=== PATIENT | male | born 1960 | race Caucasian/White ===

== ENCOUNTER 2020-06-09 12:10 | Outpatient (NON) | payer BC, SELFPAY ==
[2020-06-12 01:47] LABS: SARS-CoV-2 RNA PCR Positive
== END 2020-06-09 12:11 ==
LOC: ANHCOVIDDT 12:13
PROVIDERS: Visit Provider Emergency Medicine
DX: U07.1 COVID-19 (principal); R05 Cough
CPT/HCPCS: 87635; C9803; U0003

== ENCOUNTER 2025-04-16 16:59 | Outpatient (CLI) | payer BC, SELFPAY ==
--- OUTSIDE RECORDS SUMMARY | 2023-06-06 04:15 | XMS_ITS | Continuity of Care Document ---
Author Organization [facility] Address [address] [place] [address] Phone Care Team Providers Care Sample Box Maker Name Role Phone House RING STRIKER Sugey LADD Unavailable Unavail able Allergies, Adverse Reactions, Alerts Substance Reaction Status Criticality No Known Allergies Active No Inform ation Medications Medication Instructions Dosage Effective Dates (start - stop) Status Comments amoxicillin 500 mg capsule take 4 capsule by oral route 30 MINS PRIOR TO DENTAL PROCEDURE - Active METFORMIN HCL (unknown strength) Not Available - Active lorazepam 1 mg tablet - Active aspirin 81 mg tablet,delayed release take 1 tablet by oral route twice a day to complete 6 weeks for DVT prevention - No Longer Active Surgery on 05/04 Procedures Procedure Date X-ray exam knee, 3 views Global/Postop followup visit Total Knee Replacement Patients with documented shared decision -making Patients who are evaluated for venous th romboembol Office/outpatient visit,est, mod 2022 Office/outpatient visit,est, mod 2022 Asp/Injection, Major Joint W/ Ultrasound Office/outpatient visit,est, mod 2022 Kenalog 40mg/mL Asp/Injection, Major Joint W/ Ultrasound Office/outpatient visit,est, mod 2022 X-ray exam knee, 4+ views Kenalog 40mg/mL Asp/Injection, Major Joint W/ Ultrasound Office/outpatient visit,est, mod 2022 Kenalog 40mg/mL Asp/Injection, Major Joint W/ Ultrasound X-ray exam knee, 3 views X-ray exam knee, 3 views Global/Postop followup visit Knee Immobilizer Breg Kenalog 40mg/mL Asp/Injection, Major Joint W/ Ultrasound Xrays For Joint Survey, Sngl View Xrays For Joint Survey, Sngl View Office/outpatient visit,est, mod 2021 Office/outpatient visit,est, mod 2021 X-ray exam knee, 4+ views Kenalog 40mg/mL Asp/Injection, Major Joint W/ Ultrasound Kenalog 40mg/mL Asp/Injection, Major Joint W/ Ultrasound Office/outpatient visit,est, mod 2021 Kenalog 10mg/mL Asp/Injection, Major Joint W/ Ultrasound Kenalog 10mg/mL Asp/Injection, Major Joint W/ Ultrasound X-ray exam knee, 4+ views Kenalog Triamcinolone acetonide inj Asp/Injection, Major Joint W/ Ultrasound Office/outpatient visit,est, mod 2020 Kenalog Triamcinolone acetonide inj Asp/Injection, Major Joint W/ Ultrasound Kenalog Triamcinolone acetonide inj Asp/Injection, Major Joint W/ Ultrasound Office/outpatient visit,est, mod 2020 Kenalog Triamcinolone acetonide inj Asp/Injection, Major Joint W/ Ultrasound X-ray exam shoulder complete, minimum 2 views Asp/Injection, Major Joint W/ Ultrasound Kenalog Triamcinolone acetonide inj Asp/Injection, Major Joint W/ Ultrasound X-ray exam knee, 4+ views Synvisc One Kenalog Triamcinolone acetonide inj Asp/Injection, Major Joint W/ Ultrasound Office/outpatient visit,est, mod 2020 Kenalog Triamcinolone acetonide inj Asp/Injection, Major Joint W/ Ultrasound Kenalog Triamcinolone acetonide inj Asp/Injection, Major Joint W/ Ultrasound Kenalog Triamcinolone acetonide inj Asp/Injection, Major Joint W/ Ultrasound Office/outpatient visit,est, mod 2019 Asp/Injection, Major Joint W/ Ultrasound Kenalog Triamcinolone acetonide inj Asp/Injection, Major Joint W/ Ultrasound X-ray exam knee, 4+ views X-ray exam shoulder minimum 2 views Kenalog Triamcinolone acetonide inj Asp/Injection, Major Joint W/ Ultrasound Kenalog Triamcinolone acetonide inj Asp/Injection, Major Joint W/ Ultrasound Asp/Injection, Major Joint W/ Ultrasound Kenalog Triamcinolone acetonide inj Asp/Injection, Major Joint W/ Ultrasound Kenalog Triamcinolone acetonide inj Asp/Injection, Major Joint W/ Ultrasound Asp/Injection, Major Joint W/ Ultrasound Asp/Injection, Major Joint W/ Ultrasound Kenalog Triamcinolone acetonide inj Asp/Injection, Major Joint W/ Ultrasound Kenalog Triamcinolone acetonide inj Asp/Injection, Major Joint W/ Ultrasound Kenalog Triamcinolone acetonide inj Asp/Injection, Major Joint W/ Ultrasound Office/outpatient visit,est, mod 2018 X-ray exam shoulder minimum 2 views Depo Medrol Methylprednisolone 40 MG inj Asp/Injection, Major Joint W/ Ultrasound Office consultation, moderate-high Advance Directives Directive Yes / No Effective Date File Name No Information Encounters Encounter Description Practice Location Reason(s) For Visit Diagnoses Date Provider Providers Copied on Encounter [facility], [address], [id number], [place] tel:[phone] [facility] knee (chief complaint) Presence of right artificial knee joint 3 House R[facility]IK[facility] Sugey . [address] [address], [place], [place], [id number] , [place]. tel:[phone] Referring Provider: Rico Carty, [address] [place] [address], [id number] . tel:[phone] [facility], [address], [id number], [place] tel:[phone] [facility] No Information 3 Natalie Quiroz. [address] [address], [place], [place], [id number] , [place]. tel:[phone] Referring Provider: Rico Carty, [address] [place] [address], [id number] . tel:[phone] [facility], [address], [id number], [place] tel:[phone] [facility] No Information 3 House RING STRIKER Sugey . [address] [facility] [facility] [address], [place], [place], [id number] , [place]. tel:[phone] Office/outpa tient visit,[facility], [employer] [facility], [address] [facility] [address], [place], [place], [id number], [place] tel:[phone] [facility] right knee pain (chief complaint) Unilateral primary osteoarthritis, right knee 0 3 Natalie Quiroz. [address] [facility] [address], [place], [place], [id number] , [place]. tel:[phone] Referring Provider: Rico Carty, [address] [place] [address], [id number] . tel:[phone] Office/outpa tient visit,[facility], [employer] [facility], [address] [address], [place], [place], [id number], [place] tel:[phone] [facility] Unilateral primary osteoarthritis, right knee 3 Natalie Quiroz. [address] [facility] [address], [place], [place], [id number] , [place]. tel:[phone] Office/outpa tient visit,[facility], [employer] [facility], [address] [address], [place], [place], [id number], [place] tel:[phone] [facility] right knee pain (chief complaint) Unilateral primary osteoarthritis, right knee 3 House RING STRIKER Sugey . [address] [facility] [address], [place], [place], [id number] , [place]. tel:[phone] Office/outpa tient visit,[facility], [employer] [facility], [address] [address], [place], [place], [id number], [place] tel:[phone] [facility] right knee pain (chief complaint) Unilateral primary osteoarthritis, right knee 3 House RING STRIKER Sugey . [address] [facility], [facility] [address], [place], [place], [id number] , [place]. tel: [phone] Office/outpa tient visit,est, mod [facility], [address] [address], [place], [place], [id number], [place] tel:[phone] [facility] right knee pain (chief complaint) Unilateral primary osteoarthritis, right knee Apr-0 3 House RING [facility]IKER Sugey . [address] [facility], [address] [address], [place], [place], [id number] , [place]. tel: [phone] [facility], [address] [address], [place], [place], [id number], [place] tel:[phone] [facility] left knee tka (chief complaint) right knee pain (chief complaint) Presence of left artificial knee jointUnilateral primary osteoarthritis, right knee 2 House RING STRIKER Sugey . [address] [address], [place], [place], [id number] , [place]. tel: [phone] [facility], [address] [address], [place], [place], [id number], [place] tel:[phone] [facility] knee (chief complaint) Presence of left artificial knee joint 2 House RING STRIK[facility] Sugey . [address] [address], [place], [place], [id number] , [place]. tel: [phone] [facility], [address], [id number], [place] tel:[phone] [facility] Unilateral primary osteoarthritis, right knee 2 Natalie Quiroz. [address], [id number] , [place]. tel: [phone] [facility], [address], [id number], [place] tel:[phone] [facility] Unilateral primary osteoarthritis, left knee 2 Natalie Quiroz. [address], [id number] , [place]. tel: [phone] [facility], [address], [id number], [place] tel:[phone] [facility] right knee pain (chief complaint) Unilateral primary osteoarthritis, right knee 2 House RING STRIKER Sugey . [address], [id number] , [place]. tel: [phone] Office/outpa tient visit,est, mod [facility], [address], [id number], [place] tel:[phone] [facility] knee pain on the left greater than the right (chief complaint) Unilateral primary osteoarthritis, left kneeUnilateral primary osteoarthritis, right knee 2 Natalie Quiroz. [address], [id number] , [place]. tel: [phone] Office/outpa [place]ient visit,est, [facility], [address], [id number], [place] tel:[phone] [facility] knee pain on the left greater than the right (chief complaint) Unilateral primary osteoarthritis, left kneeUnilateral primary osteoarthritis, right knee 2 Natalie Quiroz. [address], [id number] , [place]. tel: [phone] Office/outpa tient visit,est, [facility], [address], [id number], [place] [phone] [facility] knee pain equally on both sides (chief complaint) Unilateral primary osteoarthritis, left kneeBilateral primary osteoarthritis of knee 2 House RING STRIKER Sugey . [address], [id number] , [place]. tel: [phone] [facility], [address] [place] [address], [id number], [place] tel:[phone] [facility] [employer] knee pain equally on both sides (chief complaint) Bilateral primary osteoarthritis of knee 2 House RING STRIKER Sugey . [address] [facility], [address] [address], [place], [place], [id number] , [place]. tel: [phone] Office/outpa tient visit,est, mod [facility], [address] [facility] [address], [place], [place], [id number], [place] [phone] [facility] right knee pain (chief complaint) Pain in right kneeUnilateral primary osteoarthritis, right knee Jun- 1 House RING STRIK[facility] Sugey . [address] [facility], [address], [place], [place], [id number] , [place]. tel: [phone] Office/outpa tient visit,est, [facility], [address] [address], [place], [place], [id number], [place] [phone] [facility] left shoulder pain (chief complaint) left knee pain (chief complaint) Primary osteoarthritis, left shoulderBicipit al tendinitis, left shoulderUnilate ral primary osteoarthritis, left knee 1 House RING STRIKER Sugey . [address] [facility], [address] [address], [place], [place], [id number] , [place]. tel: [phone] [facility], [address] [address], [place], [place], [id number], [place] [phone] [facility] left knee pain (chief complaint) left shoulder pain (chief complaint) Unilateral primary osteoarthritis, left kneePrimary osteoarthritis, left shoulder Feb- 1 House RING STRIKER Sugey . [address] [facility], [facility] [address], [place], [place], [id number] , [place]. tel: [phone] [facility], [address], [id number], [place] [phone] [facility] left knee pain (chief complaint) left shoulder pain (chief complaint) Unilateral primary osteoarthritis, left kneeBicipital tendinitis, left shoulderPrimary osteoarthritis, left shoulder Damir-1 0-202 1 House RING STRIKER Sugey . [address] [facility], [facility] [address], [place], [place], [id number] , [place]. tel:[phone] Office/outpa tient visit,est, [facility], [address] [facility] [address], [place], [place], [id number], [place] tel:[phone] [facility] [employer] left shoulder pain (chief complaint) Primary osteoarthritis, left shoulder Apr-1 5 1 House R[facility]IK[facility] Sugey . [address] [facility], [facility] [address], [place], [place], [id number] , [place]. tel: [phone] [facility], [address] [address], [place], [place], [id number], [place] tel:[phone] [facility] left knee pain (chief complaint) Unilateral primary osteoarthritis, left knee Apr-0 1-202 1 House RING STRIK[facility] Sugey . [address] [facility], [address] [address], [place], [place], [id number] , [place]. tel: [phone] Office/outpa tient visit,est, [facility], [address] [address], [place], [place], [id number], [place] tel:[phone] [facility] left knee pain (chief complaint) left shoulder pain (chief complaint) Unilateral primary osteoarthritis, left kneePrimary osteoarthritis, left shoulder Dec- 0 House RING STRIKER Sugey . [address] [facility], [address] [address], [place], [place], [id number] , [place]. tel: [phone] [facility], [address] [address], [place], [place], [id number], [place] tel:[phone] [facility] [employer] left knee pain (chief complaint) left shoulder pain (chief complaint) Primary osteoarthritis, left shoulderBicipit al tendinitis, left shoulderUnilate ral primary osteoarthritis, left knee Aug-2 0 Natalie Quiroz. [address] [facility], [address] [address], [place], [place], [id number] , [place]. tel: [phone] [facility], [address], [id number], [place] tel:[phone] [facility] left shoulder pain (chief complaint) left knee pain (chief complaint) Bicipital tendinitis, left shoulderUnilate ral primary osteoarthritis, left kneePrimary osteoarthritis, left shoulder 0 House RING STRIKER Sugey . [address], [id number] , [place]. tel: [phone] [facility], [address], [id number], [place] tel:[phone] [facility] left knee pain (chief complaint) left shoulder pain (chief complaint) Unilateral primary osteoarthritis, left kneePrimary osteoarthritis, left shoulder Aug- 0 House RING STRIKER Sugey . [address] [place] [address], [id number] , [place]. tel: [phone] [facility], [address], [id number], [place] tel:[phone] [facility] left knee pain (chief complaint) left shoulder pain (chief complaint) Unilateral primary osteoarthritis, left kneePrimary osteoarthritis, left shoulder 9 House RING STRIKER Sugey . [address], [id number] , [place]. tel: [phone] [facility], [address] [place] [address], [id number], [place] tel:[phone] [facility] left knee pain (chief complaint) left shoulder pain (chief complaint) Unilateral primary osteoarthritis, left kneePrimary osteoarthritis, left shoulderBicipit al tendinitis, left shoulder 9 Natalie Quiroz. [address] [place] [address], [id number] , [place]. tel: [phone] Office/outpa tient visit,est, mod [facility], [address] [place] [address], [id number], [place] tel:[phone] [facility] left knee pain (chief complaint) left shoulder pain (chief complaint) Primary osteoarthritis, left shoulderBicipit al tendinitis, left shoulderUnilate ral primary osteoarthritis, left knee 9 Natalie Quiroz. [address] [facility], [address], [place], [place], [id number] , [place]. tel: [phone] Office consultation , moderate-hig h [facility], [address], [place], [place], [id number], tel:[phone] [facility] left shoulder pain (chief complaint) Pain in left shoulderPrimary osteoarthritis, left shoulder 7 Natalie Quiroz. [address] [facility], [address], [place], [place], [id number] , [place]. tel: [phone] Family History Family Member Type Diagnosis Age At Onset Mother Problem (finding) diabetes melli tus in first degree relative Father Problem (finding) diabetes melli tus in first degree relative Payers Payer name Insurance type Covered libertarian ID Authorarianaa lui(s) [place] [facility] [id number] Social History Type Description Quantity Date Captured Comments Alcohol Use Details Unknown Caffeine Use Details Unknown Tobacco Use Status Current non-smoker Smoking Status Never smoker Non-Smoking Tobacco Use Details : No Details Available : No Details Available Sex Male Vital Signs Date / Time: Height Weight BMI Pulse Rate Blood Pressure Temperature Respiratory Rate Body Surface Area Head Circumference Head Circ. Percentile Wt./Aaron. Percentile BMI percentile Pulse Ox Inhaled Ox 9:06 AM 67.00 in 84.822 kg (187.00 lbs) 29.2 9 kg/m eter (2) 2.00 meter(2) Chief Complaint And Reason For Visit From encounter dated '06/06/2023 09:15'. knee (chief complaint). Description: The patient returns 4 weeks from the above procedure. The patient has done well in the interim and notes no wound/skin problems, wound drainage, new neurological complaints, or abnormal swelling/calf pain. The patient notes they have been compliant with physicaltherapy and is progressing well. No other complaints noted. Reason For Referral Reason For Referral No Information Plan Of Treatment Date Type Action Status Referral Ordered: X-ray exam knee, 3 views RT knee ordered Referral Ordered: Xrays For Joint Survey, Sngl View RT knee ordered Referral Ordered: X-ray exam knee, 3 views LT knee ordered Referral Ordered: Xrays For Joint Survey, Sngl View LT knee ordered Referral Ordered: X-ray exam knee, 4+ views RT knee ordered Referral Ordered: X-ray exam shoulder complete, minimum 2 views LT shoulder ordered Referral Ordered: Other LT knee Appointment date/timeframe: 10/29/2020 ordered Referral Ordered: Synvisc One LT knee ordered Referral Ordered: X-ray exam knee, 4+ views LT knee ordered Referral Ordered: X-ray exam shoulder minimum 2 views LT shoulder ordered History Of Present Illness Encounter Date Complaint History Of Prese nt Illness knee The patient retu rns 4 weeks from the above procedure. The patient has done well in the interim and notes no wound/skin problems, wound drainage, new neurological complaints, or abnormal swelling/calf pain. The patient notes they have been compliant with physical therapy and is progressing well. No other complaints noted. right knee pain Adalid mccord is a 63 year old male. The patient has significant knee osteoarthritis and presents today in anticipation of planned knee arthroplasty. In addition to the history, today I have reviewed prior lab tests including: CBC, CMP, Hgb A1C. These tests are within acceptable parameters to proceed with planned knee arthroplasty. He presents with pain and decreased range of motion on the right side. He states that the symptoms have been chronic non-traumatic. The symptoms occur constantly with intermittent worsening. Currently the patient states that the symptoms are incapacitating. The pain is described as aching, sharp and shooting. The symptoms occur with activity. The symptoms are aggravated by daily activities, movement, standing and walking. In addition to right knee pain the patient is also experiencing crepitus, decreased mobility, difficulty bending, joint pain, limping, night pain and pain after activity. Pertinent negatives include fever, radicular symptoms, numbness and weakness. Pertinent negatives include radicular symptoms, groin pain radiating to the knee. The patient has had a previous x-ray. He has had prior injections, physical therapy/home exercises, ice, OTC meds. The patient has now failed greater than 12 months of non-operative treatment including physical therapy, icing, NSAIDs, brace/gait aides, and the progression/exacerbation of this chronic issue now causes daily pain limiting ADLs including sleep, dressing, self care, and all other desired activities. The patient is therefore indicated for knee arthroplasty. right knee pain Adalid mccord is a 62 year old male. The patient has known knee osteoarthritis and returns for evaluation and to discuss other treatment options for progression/exacerbation of symptoms. He presents with pain on the right side. He states that the symptoms have been chronic non-traumatic. The symptoms occur constantly with intermittent worsening. The problem is worse. Currently the patient states that the symptoms are incapacitating. The pain is described as aching, localized and sharp. The symptoms occur with activity. The symptoms are aggravated by ascending stairs, daily activities, descending stairs, movement, standing and walking. In addition to right knee pain the patient is also experiencing crepitus, decreased mobility, difficulty bending, limping, night pain and pain after activity. Pertinent negatives include fever, radicular symptoms, numbness and weakness. The patient has had a previous x-ray. He has had prior injections, physical therapy/home exercises, ice, OTC meds. right knee pain Adalid mccord is a 62 year old male. The patient has known knee osteoarthritis and returns for evaluation and to discuss other treatment options for progression/exacerbation of symptoms. He presents with pain on the right side. He states that the symptoms have been chronic non-traumatic. The symptoms occur constantly with intermittent worsening. The problem is worse. Currently the patient states that the symptoms are incapacitating. The pain is described as aching, localized and sharp. The symptoms occur with activity. The symptoms are aggravated by ascending stairs, daily activities, descending stairs, movement, standing and walking. In addition to right knee pain the patient is also experiencing crepitus, decreased mobility, difficulty bending, limping, night pain and pain after activity. Pertinent negatives include fever, radicular symptoms, numbness and weakness. The patient has had a previous x-ray. He has had prior injections, physical therapy/home exercises, ice, OTC meds. right knee pain Adalid mccord is a 62 year old male. The patient has known knee osteoarthritis and returns for evaluation and to discuss other treatment options for progression/exacerbation of symptoms. He presents with pain on the right side. He states that the symptoms have been chronic non-traumatic. The symptoms occur constantly with intermittent worsening. The problem is worse. Currently the patient states that the symptoms are incapacitating. The pain is described as aching, localized and sharp. The symptoms occur with activity. The symptoms are aggravated by ascending stairs, daily activities, descending stairs, movement, standing and walking. In addition to right knee pain the patient is also experiencing crepitus, decreased mobility, difficulty bending, limping, night pain and pain after activity. Pertinent negatives include fever, radicular symptoms, numbness and weakness. The patient has had a previous x-ray. He has had prior injections, physical therapy/home exercises, ice, OTC meds. right knee pain Adalid mccord is a 62 year old male. The patient has a known knee osteoarthritis. He presents with pain on the right side. The patient would like to proceed with an injection today. left knee tka The patient retu rns 10 weeks from the above procedure. The patient has done well in the interim and notes no wound/skin problems, wound drainage, new neurological complaints, or abnormal swelling/calf pain. The patient notes they have been compliant with physical therapy and is progressing well. No other complaints noted. They are happy with their progress thus far. He presents with TKA and pain on the left side. knee The patient retu rns 4 weeks from the above procedure. The patient has done well in the interim and notes no wound/skin problems, wound drainage, new neurological complaints, or abnormal swelling/calf pain. The patient notes they have been compliant with physical therapy and is progressing well. No other complaints noted. right knee pain Adalid mccord is a 62 year old male. The patient has a known knee osteoarthritis. He presents with pain on the right side. The patient would like to proceed with an injection today. knee pain on the lef t greater than the right Adalid Basurto is a 62 year old male. The patient has significant knee osteoarthritis and presents today in anticipation of planned knee arthroplasty. In addition to the history, today I have reviewed prior lab tests including: CBC, CMP, Hgb A1C, PT/INR. These tests are within acceptable parameters to proceed with planned knee arthroplasty. He presents with pain and decreased range of motion on the left greater than the right. He states that the symptoms have been chronic non-traumatic. The symptoms occur constantly with intermittent worsening. Currently the patient states that the symptoms are incapacitating. The pain is described as aching, sharp and shooting. The symptoms occur with activity. The symptoms are aggravated by daily activities, movement, standing and walking. In addition to knee pain on the left greater than the right the patient is also experiencing crepitus, decreased mobility, difficulty bending, joint pain, limping, night pain and pain after activity. Pertinent negatives include fever, radicular symptoms, numbness and weakness. Pertinent negatives include radicular symptoms, groin pain radiating to the knee. The patient has had a previous x-ray. He has had prior injections, physical therapy/home exercises, ice, OTC meds. The patient has now failed greater than 12 months of non-operative treatment including physical therapy, icing, NSAIDs, brace/gait aides, and the progression/exacerbation of this chronic issue now causes daily pain limiting ADLs including sleep, dressing, self care, and all other desired activities. The patient is therefore indicated for knee arthroplasty. knee pain on the lef t greater than the right Adalid Basurto is a 62 year old male. The patient has known knee osteoarthritis and returns for evaluation and treatment noting progression/exacerbation of symptoms. He presents with decreased range of motion on the right and left side equally and pain on the left greater than the right. He states that the symptoms have been chronic non-traumatic. The symptoms occur constantly with intermittent worsening. The problem is worse. Currently the patient states that the symptoms are incapacitating. The pain is described as aching, localized and sharp. The symptoms occur with activity. The symptoms are aggravated by ascending stairs, daily activities, descending stairs, movement, standing and walking. In addition to knee pain on the left greater than the right the patient is also experiencing crepitus, decreased mobility, difficulty bending, limping, night pain and pain after activity. Pertinent negatives include fever, radicular symptoms, numbness and weakness. The patient has had a previous x-ray. He has had prior injections, physical therapy/home exercises, ice, OTC meds. knee pain equally on both sides Adalid Basurto is a 61 year old male. The patient has known knee osteoarthritis and returns for evaluation and treatment noting progression/exacerbation of symptoms. He presents with pain on the right and left side equally. He states that the symptoms have been chronic non-traumatic. The symptoms occur constantly with intermittent worsening. The problem is worse. Currently the patient states that the symptoms are incapacitating. The pain is described as aching, localized and sharp. The symptoms occur with activity. The symptoms are aggravated by ascending stairs, daily activities, descending stairs, movement, standing and walking. In addition to knee pain equally on both sides the patient is also experiencing crepitus, decreased mobility, difficulty bending, limping, night pain and pain after activity. Pertinent negatives include fever, radicular symptoms, numbness and weakness. The patient has had a previous x-ray. He has had prior injections, physical therapy/home exercises, ice, OTC meds. knee pain equally on both sides Adalid Basurto is a 61 year old male. The patient has a known knee osteoarthritis. He presents with pain on the right and left side equally. The patient would like to proceed with an injection today. right knee pain Mr Basurto i s a 61 year old male who complains of right knee pain. He presents with pain on the right side. He states that the symptoms have been chronic non-traumatic. The symptoms occur constantly with intermittent worsening. The problem is worse. Currently the patient states that the symptoms are moderate-severe. The pain is described as aching, sharp and throbbing. The symptoms occur with activity. He also reports additional pain in the medial aspect on the right side. The pain does not radiate. The symptoms are aggravated by descending stairs, squatting, standing and walking. Adalid states that the symptoms are relieved by elevation, ice, OTC medicines and rest. In addition to right knee pain the patient is also experiencing clicking, crepitus, crunching, decreased mobility and limping. Pertinent negatives include chills, erythema, fever, instability, locking and tingling. Prior NSAIDs include unspecified NSAIDS. He has had no previous treatment. Patient has not had any pertinent therapy for this condition. Patient has had no prior surgeries. There were previous episodes. left shoulder pain Adalid ellis is a 61 year old male. The patient has known glenohumeral osteoarthritis and returns noting worsening of symptoms compared to their last visit. He presents with pain on the left side. He states that the symptoms have been chronic non-traumatic. The symptoms occur constantly. The problem is worse. Currently the patient states that the symptoms are incapacitating. The pain is described as aching and sharp. The symptoms occur with activity. The symptoms are aggravated by daily activities and moving the arm suddenly. In addition to left shoulder pain the patient is also experiencing decreased mobility and nocturnal awakening. Pertinent negatives include fever, radicular symptoms, numbness and weakness. The patient has had a previous x-ray. Previous treatment includes OTC meds, physical therapy and cortisone injections. left knee pain Adalid mccord is a 61 year old male. The patient has known knee osteoarthritis and returns for evaluation and treatment noting progression/exacerbation of symptoms. He presents with pain on the left side. He states that the symptoms have been chronic non-traumatic. The symptoms occur constantly with intermittent worsening. The problem is worse. Currently the patient states that the symptoms are incapacitating. The pain is described as aching, localized and sharp. The symptoms occur with activity. The symptoms are aggravated by ascending stairs, daily activities, descending stairs, movement, standing and walking. In addition to left knee pain the patient is also experiencing crepitus, decreased mobility, difficulty bending, limping, night pain and pain after activity. Pertinent negatives include fever, radicular symptoms, numbness and weakness. The patient has had a previous x-ray. He has had prior injections, physical therapy/home exercises, ice, OTC meds. left knee pain Adalid mccord is a 61 year old male. The patient has a known knee osteoarthritis. He presents with pain on the left side. The patient would like to proceed with an injection today. left shoulder pain He presents w ith pain on the left side. The patient has known glenohumeral osteoarthritis and would like to repeat a cortisone injection today. left knee pain Adalid mccord is a 60 year old male. The patient has a known knee osteoarthritis. He presents with pain on the left side. The patient would like to proceed with an injection today. left shoulder pain He presents w ith pain on the left side. He states he had significant relief from his last injection in October until last week when he over did it at work and has been in severe pain since. The patient has known glenohumeral osteoarthritis and would like to repeat a cortisone injection today. left shoulder pain Adalid ellis is a 60 year old male. The patient has known glenohumeral osteoarthritis and returns noting worsening of symptoms compared to their last visit. He presents with pain on the left side. He states that the symptoms have been chronic non-traumatic. The symptoms occur constantly. The problem is worse. Currently the patient states that the symptoms are incapacitating. The pain is described as aching and sharp. The symptoms occur with activity. The symptoms are aggravated by daily activities and moving the arm suddenly. In addition to left shoulder pain the patient is also experiencing decreased mobility and nocturnal awakening. Pertinent negatives include fever, radicular symptoms, numbness and weakness. The patient has had a previous x-ray. Previous treatment includes rest, ice, OTC meds, PT and injections. left knee pain Adalid mccord is a 60 year old male. The patient has known knee osteoarthritis and returns for evaluation and treatment noting progression/exacerbation of symptoms. He presents with pain on the left side. He states that the symptoms have been chronic non-traumatic. The symptoms occur constantly with intermittent worsening. The problem is worse. Currently the patient states that the symptoms are incapacitating. The pain is described as aching, localized and sharp. The symptoms occur with activity. The symptoms are aggravated by ascending stairs, daily activities, descending stairs, movement, standing and walking. In addition to left knee pain the patient is also experiencing crepitus, decreased mobility, difficulty bending, limping, night pain and pain after activity. Pertinent negatives include fever, radicular symptoms, numbness and weakness. The patient has had a previous x-ray. He has had prior injections, physical therapy/home exercises, ice, OTC meds. left knee pain Adalid mccord is a 60 year old male. The patient has known knee osteoarthritis and returns now greater than 2 months from the last visit for this problem. He presents with pain on the left side. He states that the symptoms have been chronic non-traumatic. The symptoms occur constantly with intermittent worsening. The problem is unchanged. Currently the patient states that the symptoms are moderate-severe. The pain is described as aching, sharp and shooting. The symptoms occur with activity. The symptoms are aggravated by descending stairs and walking. Adalid states that the symptoms are relieved by rest. In addition to left knee pain the patient is also experiencing crepitus, joint pain and night pain. Pertinent negatives include fever, radicular symptoms, numbness and weakness. He has had prior injections, physical therapy/home exercises, ice, OTC meds. left shoulder pain Adalid ellis is a 60 year old male. The patient has known glenohumeral osteoarthritis and returns now over 2 months from the last visit. He presents with pain on the left side. The patient notes good response to prior glenohumeral injection, but pain has returned. The pain is described as aching and is moderate to severe. The pain is intermittent and made worse by activities away from the body. The patient does have pain with overhead activities, does have pain with reaching behind the back, and does have pain at night. The patient has not had episodes of instability. Current treatment has consisted of NSAIDS/Tylenol, icing, prior PT guided rehab, prior injection. Pertinent negatives include fever, radicular symptoms, numbness and weakness. left knee pain Adalid mccord is a 60 year old male. The patient has a known knee osteoarthritis. He presents with pain on the left side. The patient would like to proceed with an injection today. left shoulder pain He presents w ith pain and decreased range of motion on the left side. The patient has known glenohumeral osteoarthritis and would like to repeat cortisone injections today. He notes less and less benefit and is planning on TSA this winter but would like one more injection if possible. left shoulder pain He presents w ith pain on the left side. The patient has known glenohumeral osteoarthritis and would like to repeat cortisone injections today. left knee pain Adalid mccord is a 59 year old male. The patient has a known knee osteoarthritis. He presents with pain on the left side. The patient would like to proceed with an injection today. left knee pain Adalid mccord is a 59 year old male. The patient has known knee osteoarthritis and returns now greater than 2 months from the last visit for this problem. He presents with pain on the left side. He states that the symptoms have been chronic non-traumatic. The symptoms occur constantly with intermittent worsening. The problem is unchanged. Currently the patient states that the symptoms are moderate-severe. The pain is described as aching, sharp and shooting. The symptoms occur with activity. The symptoms are aggravated by descending stairs and walking. Adalid states that the symptoms are relieved by rest. In addition to left knee pain the patient is also experiencing crepitus, joint pain and night pain. Pertinent negatives include fever, radicular symptoms, numbness and weakness. He has had prior injections, physical therapy/home exercises, ice, OTC meds. left shoulder pain He presents w ith pain on the left side. The patient has known glenohumeral osteoarthritis and would like to repeat cortisone injections today. left knee pain Adalid mccord is a 59 year old male. The patient has known knee osteoarthritis and returns now greater than 2 months from the last visit for this problem. He presents with pain and decreased range of motion on the left side. He states that the symptoms have been chronic non-traumatic. The symptoms occur constantly with intermittent worsening. The problem is unchanged. Currently the patient states that the symptoms are moderate-severe. The pain is described as aching, sharp and shooting. The symptoms occur with activity. The symptoms are aggravated by descending stairs and walking. Adalid states that the symptoms are relieved by rest. In addition to left knee pain the patient is also experiencing crepitus, joint pain and night pain. Pertinent negatives include fever, radicular symptoms, numbness and weakness. He has had prior injections, physical therapy/home exercises, ice, OTC meds. left shoulder pain Adalid ellis is a 59 year old male. The patient has known glenohumeral osteoarthritis and returns now over 2 months from the last visit. He presents with pain and decreased range of motion on the left side. The patient notes good response to prior glenohumeral injection, but pain has returned. The pain is described as aching and is moderate to severe. The pain is intermittent and made worse by activities away from the body. The patient does have pain with overhead activities, does have pain with reaching behind the back, and does have pain at night. The patient has not had episodes of instability. Current treatment has consisted of NSAIDS/Tylenol, icing, prior PT guided rehab, prior injection. Pertinent negatives include fever, radicular symptoms, numbness and weakness. left knee pain Adalid mccord is a 59 year old male. The patient has a known knee osteoarthritis. He can not proceed with planned outpatient TKA at this time due to family issues. He presents with pain on the left side. The patient would like to proceed with an injection today. left shoulder pain He presents w ith pain on the left side. The patient has known glenohumeral osteoarthritis and would like to repeat a cortisone injection today. Due to family issues he is having to delay his planned outpatient left TSA. left knee pain Mr Basurto i s a 58 year old male who complains of left knee pain. He presents with pain and decreased range of motion on the left side. He states that the symptoms have been chronic non-traumatic. The symptoms occur constantly with intermittent worsening. The problem is worse. Currently the patient states that the symptoms are moderate-severe. The pain is described as aching, sharp and throbbing. The symptoms occur with activity. The symptoms are aggravated by descending stairs, squatting, standing and walking. Adalid states that the symptoms are relieved by elevation, ice, OTC medicines and rest. In addition to left knee pain the patient is also experiencing clicking, crepitus, crunching, decreased mobility and limping. Pertinent negatives include chills, erythema, fever, instability, locking and tingling. Prior NSAIDs include unspecified NSAIDS. He has been treated with a corticosteroid injection on the left side. The most recent was 6 months ago with mild relief. He has had prior injections, PT, icing, OTC meds and now has daily pain limiting ADLs. left shoulder pain Adalid ellis is a 58 year old male. The patient has known glenohumeral osteoarthritis and returns now over 2 years from the last visit. He presents with pain and decreased range of motion on the left side. The patient notes only brief response to prior glenohumeral injection. The pain is described as aching and is severe at worst. The pain is intermittent and made worse by activities away from the body. The patient does have pain with overhead activities, does have pain with reaching behind the back, and does have pain at night. The patient has not had episodes of instability. Current treatment has consisted of NSAIDS/Tylenol, icing, prior PT guided rehab, prior injection. Symptoms limit ADLs. Pertinent negatives include fever, radicular symptoms, numbness and weakness. left shoulder pain Mr Kaylah kidd is a 56 year old male who complains of left shoulder pain. He presents with pain, crepitus and decreased ROM on the left side. He states that the symptoms have been chronic non-traumatic. The symptoms occur constantly with intermittent worsening. The problem is unchanged. Currently the patient states that the symptoms are moderate-severe. The pain is described as aching and sharp. The symptoms occur continuously. The patient is experiencing pain in the following location: entire shoulder on the left side. He rates his best pain as 3/10. He rates his worst pain as 10/10. He rates his current pain as 7/10. The pain does not radiate. The symptoms are aggravated by daily activities, exercise, lifting, reaching overhead and sleeping in any position. Adalid states that the symptoms are relieved by ice, nsaids, pain medicine and stretching. In addition to left shoulder pain the patient is also experiencing grinding, crunching and crepitus. Pertinent negatives include fever, numbness and tingling in the arms. He has been treated with a corticosteroid injection on the left side. This provided 2-3 weeks of relief in the past. Patient has had previous therapy. Patient has had no prior surgeries. He experienced previous injury. This was years ago and sounds as if it may have been a proximal biceps rupture. This resolved quickly without treatment. He has remained at the same job. Functional Status Date Functional Assessmen t No Information Instructions Date Instruction Additional Infor rafael The details of the p rocedure performed and imaging studies were discussed in detail with the patient. The patient will continue to be WBAT. They may progress to activities as tolerated and follow up at 3 months from surgery with repeat films if needed, or at 1, 2, 5, and 10 years with x-rays for routine joint surveillance if doing well. We discussed the role of joint prophylaxis with oral antibiotics prior to any dental or surgical procedures and to call at any time with questions, concerns, or other issues. Questions answered, verbalized understanding. Related to Presence of right artificial knee joint The patient has been cleared for and is indicated to proceed with total knee arthroplasty. We discussed in detail risks, benefits, and alternatives, restrictions, rehabilitation, expected outcomes, and possible complications including but not limited to: , medical complication, DVT/PE, infection, stiffness, loosening, instability, injury to nerves, blood vessels, and surrounding soft tissues, possible continued pain, subjective disappointment with the outcome, and possible need for future surgical intervention. The patient expressed understanding and would like to proceed with total knee arthroplasty. DVT prophylaxis will be with Aspirin. They would prefer to do this at [facility] and planned LOS will be same day. We discussed the perioperative pain plan and minimizing opioids. We discussed the importance of the post op rehabilitation process in the overall outcome. They had questions answered and verbalized understanding. Related to Unilateral primary osteoarthritis, right knee It is to soon for a cortisone and he declined a visco injection today therefore he would like to proceed with an aspiration today as documented. Continue non-operative treatments as outlined previously. Follow up prn if symptoms return or worsen. Questions answered, verbalized understanding. Related to Unilateral primary osteoarthritis, right knee After discussing the risks and benefits of an injection the patient would like to proceed with an injection into the involved knee today. We will also institute efforts on weight control/loss. They were given instruction on icing and activity modifications. He will continue his at home exercises. They were given a instructions on use of an oral NSAID/Tylenol with PCP approval. We discussed possible need for total (or partial if a candidate) knee replacement in the future if non-surgical treatment fails and the patient meets medical and rehabilitation criteria. We discussed replacement would need to be delayed at least 3 months after any injection due to infection risks. Further details of surgical intervention will be discussed if non-operative treatment fails to adequately control symptoms. The patient will follow up on an as needed basis. Questions answered, verbalized understanding. Related to Unilateral primary osteoarthritis, right knee After discussing the risks and benefits of an injection the patient would like to proceed with an injection into the involved knee today. We will also institute efforts on weight control/loss. They were given instruction on icing and activity modifications. He will continue his at home exercises. They were given a instructions on use of an oral NSAID/Tylenol with PCP approval. We discussed possible need for total (or partial if a candidate) knee replacement in the future if non-surgical treatment fails and the patient meets medical and rehabilitation criteria. We discussed replacement would need to be delayed at least 3 months after any injection due to infection risks. Further details of surgical intervention will be discussed if non-operative treatment fails to adequately control symptoms. The patient will follow up on an as needed basis. Questions answered, verbalized understanding. Related to Unilateral primary osteoarthritis, right knee Injection performed today as documented. Continue non-operative treatments as outlined previously. Follow up prn if symptoms return or worsen. Questions answered, verbalized understanding. Related to Unilateral primary osteoarthritis, right knee The patient will con tinue to be WBAT. They may progress to activities as tolerated and follow up at 12 months from surgery with repeat films and at 2, 5, and 10 years with x-rays for routine joint surveillance if doing well after that. We discussed the role of joint prophylaxis with oral antibiotics prior to any dental or surgical procedures and to call at any time with questions, concerns, or other issues. Questions answered, verbalized understanding. Related to Presence of left artificial knee joint The details of the p rocedure performed and imaging studies were discussed in detail with the patient. The patient will continue to be WBAT. They may progress to activities as tolerated and follow up at 3 months from surgery with repeat films if needed, or at 1, 2, 5, and 10 years with x-rays for routine joint surveillance if doing well. We discussed the role of joint prophylaxis with oral antibiotics prior to any dental or surgical procedures and to call at any time with questions, concerns, or other issues. Questions answered, verbalized understanding. Related to Presence of left artificial knee joint Injection performed today as documented. Continue non-operative treatments as outlined previously. Follow up prn if symptoms return or worsen. Questions answered, verbalized understanding. Related to Unilateral primary osteoarthritis, right knee He would like to pro ceed with the right side in late June, and in the interim after discussing the risks, benefits, and alteratives to a minor procedure would like to proceed with a right knee cortisone injection to get some relief in the interim. We will make arrangements for this, and will plan on [place]a preop on the right as well. Related to Unilateral primary osteoarthritis, right knee The patient has been cleared for and is indicated to proceed with total knee arthroplasty. We discussed in detail risks, benefits, and alternatives, restrictions, rehabilitation, expected outcomes, and possible complications including but not limited to: , medical complication, DVT/PE, infection, stiffness, loosening, instability, injury to nerves, blood vessels, and surrounding soft tissues, possible continued pain, subjective disappointment with the outcome, and possible need for future surgical intervention. The patient expressed understanding and would like to proceed with total knee arthroplasty. DVT prophylaxis will be with Aspirin and home SCD's. They would prefer to do this as an outpatient and surgery will be at [facility]. We discussed the perioperative pain plan and minimizing opioids. Anticipated length of stay will be home same day. We discussed the importance of the post op rehabilitation process in the overall outcome. They verbalized understanding. Related to Unilateral primary osteoarthritis, left knee We will plan on righ t TKA 6-8 weeks after the left provided his recovery allows this. Related to Unilateral primary osteoarthritis, right knee Aug-10-2022 Given the patient's failure of nonoperative treatment and progression of symptoms precluding desired activities and ADLs, we discussed they would be a candidate for total knee arthroplasty. We discussed the risks, benefits, and alternatives of elective major surgery and they would like to proceed. He would like to do the LEFT knee first followed by the right 6-8 weeks later. We will make arrangements to have preoperative clearance obtained as appropriate, including ordering labs today (CBC, CMP, PT/INR, A1C) and coordinate with PCP/medical specialists as needed. They would like to proceed with this as an outpatient as part of the rapid recovery program at [facility] and appear to be a candidate. We will arrange for preop education at the center and optimize nutrition. I would like to see the patient back once this is all complete to review in detail and make a final decision on operative intervention. We will obtain full length standing and calibrated lateral views to template pre-operatively. Questions answered, verbalized understanding. Related to Unilateral primary osteoarthritis, left knee After discussing the risks and benefits of an injection the patient would like to proceed with an injection into the involved knee today. We will also institute efforts on weight control/loss. They were given instruction on icing and activity modifications. He will continue his at home exercises. They were given a instructions on use of an oral NSAID/Tylenol with PCP approval. We discussed possible need for total (or partial if a candidate) knee replacement in the future if non-surgical treatment fails and the patient meets medical and rehabilitation criteria. We discussed replacement would need to be delayed at least 3 months after any injection due to infection risks. Further details of surgical intervention will be discussed if non-operative treatment fails to adequately control symptoms. The patient will follow up on an as needed basis. Questions answered, verbalized understanding. Related to Bilateral primary osteoarthritis of knee Injection performed today as documented. Continue non-operative treatments as outlined previously. Follow up prn if symptoms return or worsen. Questions answered, verbalized understanding. Related to Bilateral primary osteoarthritis of knee After discussing the risks and benefits of an injection the patient would like to proceed with an injection into the involved knee today. We will also institute efforts on weight control/loss. They were given instruction on icing and activity modifications. He will continue his at home exercises. They were given a instructions on use of an oral NSAID/Tylenol with PCP approval. We discussed possible need for total (or partial if a candidate) knee replacement in the future if non-surgical treatment fails and the patient meets medical and rehabilitation criteria. We discussed replacement would need to be delayed at least 3 months after any injection due to infection risks. Further details of surgical intervention will be discussed if non-operative treatment fails to adequately control symptoms. The patient will follow up on an as needed basis. Questions answered, verbalized understanding. Related to Unilateral primary osteoarthritis, right knee After discussing the risk and benefits of a glenohumeral injection the patient would like to proceed. They were given instruction on icing, We discussed activity modifications as appropriate. They were given a prescription for physical therapy/instructed in home exercises. We discussed the pros and cons, need for side effect monitoring of a prescription NSAID and they declined.We discussed in general the option of shoulder arthroplasty vs. arthroscopic CAM procedure as indicated in the future if non-surgical treatment fails to provide adequate relief or significant duration of improvement. This will be discussed in more detail should non-operative treatment fail. We discussed any arthroplasty could not occur sooner than 3 months post injection due to mike-prosthetic infection concerns. They will follow up as needed should symptoms worsen or return, and know to call at an time with questions or concerns. Questions answered, verbalized understanding. Related to Bicipital tendinitis, left shoulder After discussing the risks and benefits of an injection the patient would like to proceed with an injection into the involved knee today. We will also institute efforts on weight control/loss. They were given instruction on icing and activity modifications. He will continue his at home exercises. They were given a instructions on use of an oral NSAID/Tylenol with PCP approval. We discussed possible need for total (or partial if a candidate) knee replacement in the future if non-surgical treatment fails and the patient meets medical and rehabilitation criteria. We discussed replacement would need to be delayed at least 3 months after any injection due to infection risks. Further details of surgical intervention will be discussed if non-operative treatment fails to adequately control symptoms. The patient will follow up on an as needed basis. Questions answered, verbalized understanding. Related to Unilateral primary osteoarthritis, left knee Injection performed today as documented. Continue non-operative treatments as outlined previously. Follow up prn if symptoms return or worsen. Questions answered, verbalized understanding. Related to Primary osteoarthritis, left shoulder Injection performed today as documented. Continue non-operative treatments as outlined previously. Follow up prn if symptoms return or worsen. Questions answered, verbalized understanding. Related to Unilateral primary osteoarthritis, left knee Injection performed today as documented. Continue non-operative treatments as outlined previously. Follow up prn if symptoms return or worsen. Questions answered, verbalized understanding. Related to Primary osteoarthritis, left shoulder Injection performed today as documented. Continue non-operative treatments as outlined previously. Follow up prn if symptoms return or worsen. Questions answered, verbalized understanding. Related to Unilateral primary osteoarthritis, left knee After discussing the risk and benefits of a glenohumeral injection the patient would like to proceed. They were given instruction on icing, We discussed activity modifications as appropriate. They were given a prescription for physical therapy/instructed in home exercises. We discussed the pros and cons, need for side effect monitoring of a prescription NSAID and they declined.We discussed in general the option of shoulder arthroplasty vs. arthroscopic CAM procedure as indicated in the future if non-surgical treatment fails to provide adequate relief or significant duration of improvement. This will be discussed in more detail should non-operative treatment fail. We discussed any arthroplasty could not occur sooner than 3 months post injection due to mike-prosthetic infection concerns. They will follow up as needed should symptoms worsen or return, and know to call at an time with questions or concerns. Questions answered, verbalized understanding. Related to Primary osteoarthritis, left shoulder Injection performed today as documented. Continue non-operative treatments as outlined previously. Follow up prn if symptoms return or worsen. Questions answered, verbalized understanding. Related to Unilateral primary osteoarthritis, left knee The patient would li ke to proceed with a glenohumeral injection today, along with icing, NSAIDs and/or Tylenol, activity modifications, and physical therapy and/or home strengthening exercises as appropriate. They were given a prescription for physical therapy and an oral anti-inflammatory with their PCP's approval. We discussed in general the option of shoulder arthroplasty vs. arthroscopic CAM procedure as indicated in the future if non-surgical treatment fails to provide adequate relief or significant duration of improvement. This will be discussed in more detail should non-operative treatment fail. We discussed any arthroplasty could not occur sooner than 3 months post injection due to mike-prosthetic infection concerns. They will follow up as needed should symptoms worsen or return, and know to call at an time with questions or concerns. Questions answered, verbalized understanding. Related to Primary osteoarthritis, left shoulder The patient would li ke to proceed with an injection into the involved knee today. We will also institute efforts on weight control/loss. They were given instruction on icing and activity modifications. A prescription was given for physical therapy. They were given a instructions on use of an oral NSAID/Tylenol with PCP approval. We discussed possible need for total (or partial if a candidate) knee replacement in the future if non-surgical treatment fails and the patient meets medical and rehabilitation criteria. We discussed replacement would need to be delayed at least 3 months after any injection due to infection risks. Further details of surgical intervention will be discussed if non-operative treatment fails to adequately control symptoms. The patient will follow up on an as needed basis. Questions answered, verbalized understanding. Related to Unilateral primary osteoarthritis, left knee Injection performed today as documented. Continue non-operative treatments as outlined previously. Follow up prn if symptoms return or worsen. From a shoulder standpoint we will start to plan for TSA in June, likely as an outpatient. Questions answered, verbalized understanding. Related to Unilateral primary osteoarthritis, left knee Injection performed today as documented. Continue non-operative treatments as outlined previously. Follow up prn if symptoms return or worsen. Questions answered, verbalized understanding. Related to Primary osteoarthritis, left shoulder Injection performed today as documented. Continue non-operative treatments as outlined previously. Follow up prn if symptoms return or worsen. Questions answered, verbalized understanding. Related to Unilateral primary osteoarthritis, left knee Injection performed today as documented. Continue non-operative treatments as outlined previously. Follow up prn if symptoms return or worsen. Questions answered, verbalized understanding. Related to Primary osteoarthritis, left shoulder Injection performed today as documented. Continue non-operative treatments as outlined previously. Follow up prn if symptoms return or worsen. Questions answered, verbalized understanding. Related to Primary osteoarthritis, left shoulder Injection performed today as documented. Continue non-operative treatments as outlined previously. Follow up prn if symptoms return or worsen. Questions answered, verbalized understanding. Related to Unilateral primary osteoarthritis, left knee Injections performed today as documented. Continue non-operative treatments as outlined previously to get through until surgery. He is going to let me know when things have stabilized and surgery can proceed. Questions answered, verbalized understanding. Related to Bicipital tendinitis, left shoulder The patient would eyad olguin to proceed with a repeat injection into the involved knee today to get through the summer and continue his prior non-op treatments for now, but he has progressed to the point he is indicated for TKA. He would like to plan on outpatient TKA in late February, as he has too much work/financial things over the summer to do it now, and we will start this process. Questions answered, verbalized understanding. Related to Unilateral primary osteoarthritis, left knee He would like to rep eat a cortisone injection today to get through the summer and then likely consider TSA in the fall after he recovers from TKA. This will also likely be as an outpatient. He will continue his other prior non-op treatments. Related to Bicipital tendinitis, left shoulder The patient would eyad olguin to proceed with a glenohumeral injection today, along with continued icing, NSAIDs/Tylenol, activity modifications, and continued PT and/or home strengthening exercises as appropriate. The patient will follow up on an as needed basis. We discussed we could repeat an injection again in 3 months or more if needed depending on the response today. We discussed possible TSA as indicated in the future if non-surgical treatment fails and the patient can tolerate this from a medical and post op rehabilitation standpoint. We discussed any arthroplasty could not occur sooner than 3 months post injection due to mike-prosthetic infection concerns. Questions answered, verbalized understanding. 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 Patient Care Teams Name Effective Dates (start - stop) Status Members No Information
--- OUTSIDE RECORDS SUMMARY | 2025-03-27 09:20 | XMS_ITS ---
Author Organization 1 OF [facility] Address [address] [facility] [address] [place] [address] Care Team Providers Care Kettle Operator Head Name Role Phone Rico Dao M.D. Primary Care Provider Jevon Clark [phone] REASON FOR VISIT Both feet causing pain Encounters Encounter Location Date Provider Diagnosis [facility] [address] [facility] [address] [place] [address] 03/27/2025 Jevon Verdin Plan Of Treatment No Information Progress Notes * Adalid GOREDOB:[birth year] (65 yo M)Acc No.[id number]:03/27/2025 Progress Notes Patient: Adalid London Provider: [facility] DPM :1960 A ge:65 Y S ex:Male Date:03/27/2025 Address[address] [facility] Pcp:Rico Dao M.D. Subjective: * Chief Complaints: * B oth feet causing pain * Electronic signature of Daniel Verdin DPM on 04/16/2025 at 05:12 PM CDT Sign off status: Pending * Provider: [facility] Date: 0 03/27/2025 Generated for Ashleyi ng/Faxing/eTransmitting on: 1 05:12 PM CDT
--- OUTSIDE RECORDS SUMMARY | 2025-04-06 03:10 | XMS_ITS ---
Author Organization 1 OF Axel slade [facility] Address [address] [place] [address] Care Team Providers Care Planer Chain Offbearer Name Role Phone Rico Dao M.D. Primary Care Provider Unavail able Jevon Verdin Allergies No Known Allergies Reason For Referral Reason idiopathic neuropath y, pain aggrevated by walking Referral Organization 1 OF [facility]el [facility] [employer] Referring Provider First Name Osmany schwarz Referring Provider Last Name Lambert Referring Provider Speciality Podiatry Referred Provider Specialty Neurology Referral Priority Routine REASON FOR VISIT f/u tarsal tunnel B/L Medications Medication SIG (Take, Route, Frequency, Duration) Notes Start Date End Date Status Gabapentin 100 MG Capsule 1 capsule Orally three times daily; Duration: 30 days 04/06/2025 Active Medrol (Kwadwo) 4 MG Tablet as directed Orally as directed; Duration: 6 days 03/18/2025 Not-Taking/PRN Erythromycin 2 % Pad 1 pad Externally Twice a day; Duration: 14 days 03/25/2025 Active amLODIPine Besylate 5 MG Tablet TAKE 1 TABLET BY MOUTH DAILY Oral; Duration: 90 Days Active LORazepam 1 MG Tablet TAKE 1 TABLET BY MOUTH THREE TIMES DAILY NEEDED FOR ANXIETY Oral; Duration: 30 Days Active Losartan Potassium 100 MG Tablet TAKE 1 TABLET BY MOUTH EVERY DAY Oral; Duration: 30 Days Active Pantoprazole Sodium 40 MG Tablet Delayed Release Oral; Duration: 30 Days Active Atenolol 25 MG Tablet TAKE 1 TABLET BY MOUTH DAILY Oral; Duration: 30 Days Active Problems Problem Type SNOMED Code ICD Code Onset Dates Problem Status W/U Status Risk Notes Problem 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 neuropathy (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 Vital Signs Height 66 in 04/06/2025 Weight 180 lbs 04/06/2025 BMI 29.05 kg/m2 04/06/2025 Encounters Encounter Location Date Provider Diagnosis [facility] [address] [place] [address] [address] [place] [address] 04/06/2025 Jevon Verdin Foot pain, left M79.672 ; Plantar fasciitis, bilateral M72.2 ; Foot pain, right M79.671 ; 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 ; Pronation deformity of left foot M21.6X2 ; Pain aggravated by walking R52 ; Hyperhidrosis of feet L74.513 and Idiopathic neuropathy G60.9 Assessments Encounter Date Diagnosis (ICD Code) Assessment Notes Treatment Notes Treatment Clinical Notes Section Notes 04/06/2025 Foot pain, left (ICD-10 - M79.672) 04/06/2025 Plantar fasciitis, bilateral (ICD-10 - M72.2) 04/06/2025 Foot pain, right (ICD-10 - M79.671) 04/06/2025 Pronation deformity of right foot (ICD-10 - M21.6X1) 04/06/2025 Pronation deformity of left foot (ICD-10 - M21.6X2) 04/06/2025 Pain aggravated by walking (ICD-10 - R52) 04/06/2025 Hyperhidrosis of feet (ICD-10 - L74.513) 04/06/2025 Idiopathic neuropathy (ICD-10 - G60.9) 04/06/2025 Other Plan: - Prescribed Gabapentin 100 mg. Instructed to start one capsule at bedtime for 3-5 days. If tolerated, may increase to one capsule three times daily as needed for pain. Discussed common side effects, including drowsiness. - Referral to Neurology at [facility] for further evaluation of neuropathic symptoms. - Discussed possibility of an MRI of either foot. - Discussed various neuropathy treatments, including B12 injections, and advised caution regarding unproven therapies. - Plan for custom orthotics is pending. Will reschedule fabrication appointment. - Follow-up pending custom orthotic fabrication and neurology consultation. Interventions: - Patient education provided regarding the use of Gabapentin, the nature of neuropathic pain, and the plan for specialist referral. Evaluation: - Previous injection provided partial, temporary relief. Treatment plan adjusted to include systemic medication for neuropathic pain and specialist consultation to investigate underlying etiology. Plan Of Treatment Medication Medication Name Sig Start Date Stop Date Notes Gabapentin 100 MG Capsule 1 capsule Oral ly three times daily; Duration: 30 days 04/06/2025 Treatment Notes Assessment Notes Other Plan: - Prescribed Gabapentin 100 mg. Instructed to start one capsule at bedtime for 3-5 days. If tolerated, may increase to one capsule three times daily as needed for pain. Discussed common side effects, including drowsiness. - Referral to Neurology at [facility] for further evaluation of neuropathic symptoms. - Discussed possibility of an MRI of either foot. - Discussed various neuropathy treatments, including B12 injections, and advised caution regarding unproven therapies. - Plan for custom orthotics is pending. Will reschedule fabrication appointment. - Follow-up pending custom orthotic fabrication and neurology consultation. Interventions: - Patient education provided regarding the use of Gabapentin, the nature of neuropathic pain, and the plan for specialist referral. Evaluation: - Previous injection provided partial, temporary relief. Treatment plan adjusted to include systemic medication for neuropathic pain and specialist consultation to investigate underlying etiology. Referrals Referral Date Details 04/06/2025 04/06/2025, melindaopath ic neuropathy, pain aggrevated by walking History and Physical Notes * HPI (History of Present Illness) Category Sub-Category Detail Notes Category Not es MA assisting with visit: Chart Prep Susanna Examination Category Sub-Category Detail Notes Category Not es General Examination Mental status: Cooperative, Oriented to person, place and time, Mood and affect: normal, Judgement and intellect: normal with appropriate response to questions Shoes today: HOkas Exam unchanged from prior visit: with no significant changes in appearance or condition of feet Constitutional / Appearance: No acute di stress , Well nourished, Appropriate personal hygiene Consultation Request Notes Referral Date Referring Provider Referred Provider Not es 04/06/2025 Jevon Verdin idiopa thic neuropathy, pain aggrevated by walking Progress Notes * Adalid BASURTODOB:[birth year] (65 yo M)Acc No.[id number]:04/06/2025 Progress Notes Patient: Axel jeffrey Adalid Provider: Axel Verdin DPM :1960 A ge:65 Y S ex:Male Date:04/06/2025 Address:[address], [facility] Pcp:Rico Dao M.D. Subjective: * Chief Complaints: * f /u tarsal tunnel B/L * HPI: Malia Becker assisting with visit:: Chart Prep aPmela valente reason for visit:: 65 y/o male RTO for f/u on tarsal tunnel syndrome bilateral/ PF. - Reports previous injection provided approximately 50% relief with walking pain, but significant symptoms remain. - Describes pain as feeling like walking on glass. At night, experiences bilateral foot pain described as electrical shocks and pins and needles, which disrupts sleep. Symptoms are equal in both feet. Reports pain is present both with weight-bearing and at rest, particularly when lying down. - PMHx: Type 2 diabetes for approximately one year, which resolved 6-7 years ago with weight loss; A1C has been <6 for seven years. History of COVID-19, which was followed by low vitamin D levels and neuropathy symptoms. Previous nerve conduction study was negative. Last vitamin D level one month ago was normal. \- Medications: Occasional ibuprofen. - Reports pain is minimal when sitting after work but begins when he lies down in bed. * Medical History: High blood pressure GERD/Reflux Anxiety disorder Medical History Verified * Surgical History: Denies Past Surgical History. Surgical History verified. * Hospitalization/Major Diagno stic Procedure: Denies Past Hospitalization. Hospitalization Verified. * Family History: N o Family History documented.. F amily History Verified.. * Social History: Social History Verified. No Social History documented. * Medications: T akingLosartan Potassium 100 MG Tablet TAKE 1 TABLET BY MOUTH EVERY DAY Oral Atenolol 25 MG Tablet TAKE 1 TABLET BY MOUTH DAILY Oral Pantoprazole Sodium 40 MG Tablet Delayed Release Oral LORazepam 1 MG Tablet TAKE 1 TABLET BY MOUTH THREE TIMES DAILY NEEDED FOR ANXIETY Oral amLODIPine Besylate 5 MG Tablet TAKE 1 TABLET BY MOUTH DAILY Oral Erythromycin 2 % Pad 1 pad Externally Twice a day Taking Losartan Potassium 100 MG Tablet TAKE 1 TABLET BY MOUTH EVERY DAY Oral Taking Atenolol 25 MG Tablet TAKE 1 TABLET BY MOUTH DAILY Oral Taking Pantoprazole Sodium 40 MG Tablet Delayed Release Oral Taking LORazepam 1 MG Tablet TAKE 1 TABLET BY MOUTH THREE TIMES DAILY NEEDED FOR ANXIETY Oral Taking amLODIPine Besylate 5 MG Tablet TAKE 1 TABLET BY MOUTH DAILY Oral Taking Erythromycin 2 % Pad 1 pad Externally Twice a day Not-Taking/PRNMedrol (Kwadwo) 4 MG Tablet as directed Orally as directed Medication List reviewed and reconciled with the patientNot-Taking/PRN Medrol (Kwadwo) 4 MG Tablet as directed Orally as directed Medication List reviewed and reconciled with the patient * Allergies: N .K.D.AAmitayesAllergies Verified. Objective: * Vitals: W t:180lbs, Wt-k.65 kg, Ht:66in, BMI:29.05Index. * Examination: G eneral Examination: Constitutional / Appearance: N o acute distress , Well nourished, Appropriate personal hygiene. Mental status: C ooperative, Oriented to person, place and time, Mood and affect: normal, Judgement and intellect: normal with appropriate response to questions. Shoes today: H Okas. Exam unchanged from prior visit: w graciela no significant changes in appearance or condition of feet . Assessment: * Assessment: 1. P lantar fasciitis, bilateral - M72.2 (Primary) 2 . F oot pain, left - M79.672 3 . F oot pain, right - M79.671 4 . P ronation deformity of right foot - M21.6X1 5 . P ronation deformity of left foot - M21.6X2 6 . P ain aggravated by walking - R52 7 . H yperhidrosis of feet - L74.513 8 . I diopathic neuropathy - G60.9 Plan: * Treatment: 2. O thers Notes: Plan: - Prescribed Gabapentin 100 mg. Instructed to start one capsule at bedtime for 3-5 days. If tolerated, may increase to one capsule three times daily as needed for pain. Discussed common side effects, including drowsiness. - Referral to Neurology at [facility] for further evaluation of neuropathic symptoms. - Discussed possibility of an MRI of either foot. - Discussed various neuropathy treatments, including B12 injections, and advised caution regarding unproven therapies. - Plan for custom orthotics is pending. Will reschedule fabrication appointment. - Follow-up pending custom orthotic fabrication and neurology consultation. Interventions: - Patient education provided regarding the use of Gabapentin, the nature of neuropathic pain, and the plan for specialist referral. Evaluation: - Previous injection provided partial, temporary relief. Treatment plan adjusted to include systemic medication for neuropathic pain and specialist consultation to investigate underlying etiology. Referral To:Neurology Reason:idiopathic neuropathy, pain aggrevated by walking * Preventive Medicine: Counseling: C are goal follow-up plan: BMI counseling provided to patient:?Lifestyle education Screenings: F ALL RISK SCREENING Fall Risk Assessment: N o falls in the past year * Images * - PF U/S * Electronic signature of Daniel Verdin DPM on 04/16/2025 at 05:12 PM CDT Sign off status: Pending * Provider: Axel Verdin DPM Date: 0 04/06/2025 Generated for Naima Mahan/Mikey on: 1 05:12 PM CDT
--- NOTE | ~2025-04-16 | XR_ITS ---
XR lumbar spine min 4V Indication: Lumbosacral radiculopathy at L5 Comparison: None Findings: Moderate loss of vertebral height throughout with remote compression deformities of T12 and T11, no acute fracture or subluxation. Moderate to severe loss of disc height throughout most marked at L5-S1. Soft tissues unremarkable Impression: No acute abnormality. Reviewed, dictated and finalized at location P. Impression: No acute abnormality.
--- OUTSIDE RECORDS SUMMARY | 2025-04-16 17:12 | XMS_ITS | Clinical Summary ---
Author Organization [facility] Address [address] [place] [address] Care Team Providers Care Briar Wood Sorter Name Role Phone Rico Dao MD Primary Care Provider [phone] Sugey Piper BOLT CUTTER Unavailable [phone] Allergies No known active allergies Medications LORazepam (ATIVAN) 1 mg tablet Take 1 tablet (1 mg total) by mouth every 8 (eight) hours as needed for anxiety Active atenoloL (TENORMIN) 25 mg tablet Take 1 tablet (25 mg total) by mouth daily Active amLODIPine (NORVASC) 5 mg tablet Take 1 tablet (5 mg total) by mouth daily Active losartan (COZAAR) 100 mg tablet Take 1 tablet (100 mg total) by mouth daily Active pantoprazole DR (PROTONIX) 40 mg EC tablet Take 1 tablet (40 mg total) by mouth daily Active omega-3 fatty acids-fish oil 300-1,000 mg capsule Take 2 capsules (2 g total) by mouth daily Active ergocalciferol, vitamin D2, 50 mcg (2,000 unit) tablet Take by mouth daily Active HYDROcodone-emmie taminophen (NORCO) 5-325 mg per tabletIndicatio ns:Pain Take 1-2 tablets by mouth every 6 (six) hours as needed for pain 25 tablet 05/04/2023 Active oxyCODONE (ROXICODONE) 5 mg immediate release tabletIndicatio ns:Pain Take 1 tablet (5 mg total) by mouth every 6 (six) hours as needed for pain (Breakthrough pain only) 5 tablet 05/04/2023 Active celecoxib (CeleBREX) 200 mg capsuleIndicati ons:Postoperati ve Acute Pain Take 1 capsule (200 mg total) by mouth daily for 14 days 14 capsule 05/04/2023 Active aspirin 81 mg enteric coated tabletIndicatio ns:prevention of thrombosis Take 1 tablet (81 mg total) by mouth 2 (two) times a day 84 tablet 05/04/2023 Active hydrOXYzine (VISTARIL) 25 mg capsule Take 1 capsule (25 mg total) by mouth every 6 (six) hours as needed for itching (nausea, vomiting, itching, pain adjunct) 30 capsule 05/04/2023 Active pregabalin (LYRICA) 75 mg capsuleIndicati ons:Postoperati ve Acute Pain Take 1 capsule (75 mg total) by mouth nightly for 5 days 5 capsule 05/04/2023 Active Active Problems Problem Noted Date Diagnosed Date Primary osteoarthritis of right knee 03/29/2023 Surgical History Surgery Date Site/Laterality Comments TOTAL KNEE ARTHROPLASTY 04/19/2022 Left TONSILLECTOMY Medical History Medical History Date Comments Primary osteoarthritis of right knee Hypertension Anxiety Diabetes mellitus GERD (gastroesophageal reflux disease) Sleep apnea Social History Tobacco Use Types Packs/Day Years Used Date Smoking Tobacco: Never Smokeless Tobacco: Never AUDIT-C Answer Date Recorded Q1: How often do you have a drink containing alc ohol? 2-4 times a month 05/04/2023 Q2: How many drinks containi ng alcohol do you have on a typical day when you are drinking? 5 or 6 05/04/2023 Q3: How often do you have si x or more drinks on one occasion? Less than monthly 05/04/2023 Personal Safety Answer Date Recorded Have you ever been in or are you currently in a harmful physical or emotional relationship or is someone making you feel afraid or unsafe? 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 Gender Identity Not on file Sexual Orientation Not on file Obstetrics History Last Filed Vital Signs Vital Sign Reading Time Taken Comments Blood Pressure 121/82 05/04/2023 12:05 PM CDT Pulse 49 05/04/2023 11:45 AM CDT Temperature 37.2 C (99 F) 05/04/2023 8:45 AM CDT Respiratory Rate 17 05/04/2023 11:4 5 AM CDT Oxygen Saturation 99% 05/04/2023 11: 45 AM CDT Inhaled Oxygen Concentration - - Weight 79.7 kg (175 lb 11.3 oz) 05/04/2023 6:24 AM CDT Height 167.6 cm (5' 6) 05/04/2023 6:24 AM CDT Body Mass Index 28.36 05/04/2023 6:24 AM CDT Plan of Treatment Health Maintenance Due Date Last Done Comments Colon Cancer Screening-Colonoscopy 1960 Depression Screening 1960 Hepatitis C Screening 1960 Prostate Cancer Screening-PSA 1960 Hepatitis B Screening 02/21/1980 Regular Well Visit/Exam 18-64 02/21/1980 Zoster Vaccine (1 of 2) 02/21/2012 Covid-19 Vaccine ( - season) 2025 05/31/2021, 10/24/2020, 10/03/2020 Influenza Vaccine (#1) 2025 , 03/27/2021, 03/27/2021, Additional history exists DTaP/Tdap/Td Vaccine (4 - Td or Tdap) 05/11/2029 05/11/2019, 01/23/2015, 01/23/2015 Pneumococcal vaccine <65 Aged Out No longer eligible based on patient's age to complete this topic Medical Devices Implanted Type Area Encapsulator Device Identifier Shelf Expiration Date Model / Serial / Lot [employer] Insert Tibial Triathlon 4 H9mm Knee Bearing Condylar Stabilize Sterile 7531-D-820-E - [id number] Implanted:Qty: 1 on 05/04/2023 by Richie Estrada MD at [facility] Right: Knee [employer] [id number] 02/08/2028 5531-G-40 9-E / / [id number] [employer] Triathlon Cruciate Retain Bead Knee Right 4 Component Femoral Pa 5517-F-402 - [id number] Implanted:Qty: 1 on 05/04/2023 by Richie Estrada MD at [facility] Right: Knee [employer] [id number] 06/13/2027 5517-F-40 2 / / [id number] [employer] Triathlon Coated Knee 4 Baseplate Tibial Tritanium Sterile 5536-B-400 - [id number] Implanted:Qty: 1 on 05/04/2023 by Richie Estrada MD at [facility] Right: Knee [employer] [id number] 09/25/2027 5536-B-40 0 / / [id number] Insurance [employer] [facility] Address: [facility] [id number] [place] [id number] Care Teams Briar Wood Sorter Relationship Specialty Start Date End Date Rico Dao MD [address] [address] PCP - General Family Medicine 04/16/23 Sugey Piper NP [address] [facility] [address] [place] [address] Nurse Practitioner Orthopedic Surgery 05/04/23
--- OUTSIDE RECORDS SUMMARY | 2025-04-16 17:12 | XMS_ITS | Clinical Summary ---
Author Organization [facility] Address [facility] [place] [address] Care Team Providers Care Scrap Worker Name Role Phone Rico Dao MD Primary Care Provider [phone] Allergies No known active allergies Social History Tobacco Use Types Packs/Day Years Used Date Smoking Tobacco: Never Smokeless Tobacco: Never Alcohol Use Standard Drinks/Week Comments No 0 (1 standard drink = 0.6 oz pur e alcohol) Sex and Gender Information Value Date Recorded Sex Assigned at Not on file Legal Sex Male 5:08 PM CDT Gender Identity Not on file Sexual Orientation Not on file Last Filed Vital Signs Vital Sign Reading Time Taken Comments Blood Pressure 119/74 03/19/2018 12:16 PM CDT Pulse 66 03/19/2018 12:16 PM CDT Temperature 36.4 C (97.5 F) 03/19/2018 12:16 PM CDT Respiratory Rate 18 03/19/2018 12:16 PM CDT Oxygen Saturation 96% 03/19/2018 12:16 PM CDT Inhaled Oxygen Concentration - - Weight 90.7 kg (200 lb) 03/19/2018 12:16 PM CDT Height 167.6 cm (5' 6) 03/19/2018 12:16 PM CDT Body Mass Index 32.28 03/19/2018 12:16 PM CDT Plan of Treatment Health Maintenance Due Date Last Done Comments Colorectal Cancer Screening Colonoscopy (10 Years) 1960 Annual Physical 1965 Hepatitis C 02/21/1980 DTaP, Tdap and Td Vaccines ( 1 - Tdap) 1981 Pneumococcal Vaccine: 50+ Ye ars (1 of 1 - PCV) 02/21/2012 Zoster Vaccines (1 of 2) 02/21/2012 COVID-19 Vaccine (2023-2 5 season) 2025 RSV Immunization or 60+ Years (1 - 1-dose 75+ series) 2037 Meningococcal B Vaccine Aged Out No l onger eligible based on patient's age to complete this topic Meningococcal Vaccine Aged Out No chriss junito eligible based on patient's age to complete this topic RSV Immunizations Under 20 Months Aged Out No longer eligible based on patient's age to complete this topic Insurance Care Teams Scrap Worker Relationship Specialty Start Date End Date Rico Dao MD PCP - General 12/11/11
--- OUTSIDE RECORDS SUMMARY | 2025-04-16 17:12 | XMS_ITS | Encounter Summary ---
Author Organization [facility] Address [address] [place] [address] Care Team Providers Care Director Of Maintenance Name Role Phone Rico Dao MD Primary Care Provider [phone] Encounter Details Date Type Department Care Team (Late st Contact Info) Description 03/10/2025 Results Follow-Up [facility] - Family Medicine [address] [place] [address] Rico Dao MD [address] [address] Social History Tobacco Use Types Packs/Day Years Used Date Smoking Tobacco: Never Smokeless Tobacco: Never Alcohol Use Standard Drinks/Week Comments Not Currently 0 (1 standard drink = 0.6 oz pur e alcohol) PHQ-2 Answer Date Recorded Patient Health Questionnaire-2 Score 0 03/09/2025 Sex and Gender Information Value Date Recorded Sex Assigned at Not on file Legal Sex Male 4:39 PM CDT Gender Identity Not on file Sexual Orientation Not on file documented as of this encounter Progress Notes * Milla Barton RN - 03/24/2025 1:25 PM CDT Pt notified. States he will call back with PT preference. Pt states the bottom of his feet hurt andget dry at night. States he sees podiatry tomorrow. * Milla Barton RN - 03/24/2025 1:20 PM CDT Pt notified. * Milla Barton RN - 03/10/2025 10:46 AM CDT M for pt to call office back to discuss lab and XR results. documented in this encounter Plan of Treatment Upcoming Encounters Date Type Department Care Team (Late st Contact Info) Description 04/24/2025 7:30 AM CDT Office Visit [facility] - Family Medicine [address] [place] [phone] Rico Dao MD [address] [phone] Scheduled Orders Name Type Priority Associated Diagnoses Orde r Schedule XR Lumbar Spine 4Vw or More Imaging Routine Lumbosacral radiculopathy at L5 1 Occurrences starting 03/22/2025 until 03/22/2026 documented as of this encounter Visit Diagnoses Diagnosis Lumbosacral radiculopathy at L5- Primary Thoracic or lumbosacral neuritis or radiculitis, unspecified documented in this encounter Care Teams Director Of Maintenance Relationship Specialty Start Date End Date Rico Dao MD [address] [place] [phone] PCP - General Family Medicine 07/22/20 documented as of this encounter
--- OUTSIDE RECORDS SUMMARY | 2025-04-16 17:13 | XMS_ITS | Clinical Summary ---
Author Organization [facility] Address [address] [place] [address] Care Team Providers Care Clinic [facility] Name Role Phone Mi Dao MD Primary Care Provider [phone] Source Comments [facility],non-owned Affiliates and Associated Physician Practices is amultiple site organization consisting of ambulatory clinics and hospital sitesin [place], [place], [place] and [place]. This disclosure is being madepursuant to the Care Everywhere program and may not contain all information available regarding this patient. Last updated 18.[employer] [facility] Allergies No known active allergies Medications * Be aware that medications may not be up to date on this document. Alwaysverify current medications with the patient. FREESTYLE LANCETS MISC FreeStyle Lancets 28 gauge TEST QD Active [place]-3 Fatty Acids (FISH OIL PO) Fish Oil ONE CAPSULE BY MOUTH TWICE DAILY Active blood glucose (FREESTYLE LITE STRIPS) test stripIndications :Type 2 diabetes mellitus without complication, without long-term current use of insulin (HCC) Use 2 times daily 100 strip 5 03/24/20 21 Active Cyanocobalamin (VITAMIN B 12 PO) Take 1 tablet by mouth once daily Active Ergocalciferol 50 MCG (1999 UT) Take by mouth once daily Active amLODIPine (Norvasc) 5 MG tabletIndication s:Essential hypertension Take 1 (one) tablet by mouth once daily 90 tablet 3 06/03/20 24 Active rosuvastatin (Crestor) 10 MG tabletIndication s:Mixed hyperlipidemia,T ype 2 diabetes mellitus without complication, without long-term current use of insulin (HCC) Take 1 (one) tablet by mouth once daily 100 tablet 4 07/08/20 24 Active pantoprazole EC (Protonix) 40 MG tablet TAKE 1 TABLET BY MOUTH EVERY DAY 90 tablet 12/25/19 25 Active atenolol (Tenormin) 25 MG tabletIndication s:Essential hypertension TAKE 1 TABLET BY MOUTH DAILY 100 tablet 03/02/20 25 Active losartan (Cozaar) 100 MG tabletIndication s:Essential hypertension TAKE 1 TABLET BY MOUTH EVERY DAY 90 tablet 03/30/20 25 Active LORazepam (Ativan) 1 MG tabletIndication s:Generalized anxiety disorder TAKE 1 TABLET BY MOUTH THREE TIMES DAILY NEEDED FOR ANXIETY 90 tablet 04/03/20 25 Active losartan (Cozaar) 100 MG tabletIndication s:Essential hypertension TAKE 1 TABLET BY MOUTH EVERY DAY 100 tablet 12/04/19 25 025 Discontinued LORazepam (Ativan) 1 MG tabletIndication s:Generalized anxiety disorder TAKE 1 TABLET BY MOUTH THREE TIMES DAILY NEEDED FOR ANXIETY 90 tablet 03/05/20 25 025 Discontinued Active Problems Problem Noted Date Diagnosed Date Primary osteoarthritis of right knee 03/29/2023 Anxiety 10/28/2020 Gastroesophageal reflux disease 10/28/2020 Hyperglycemia 10/28/2020 Knee pain 10/28/2020 Rotator cuff syndrome 10/28/2020 Subacromial bursitis 10/28/2020 Vitamin D deficiency 07/07/2020 HTN (hypertension) Resolved Problems Problem Noted Date Diagnosed Date Resolved Date Type 2 diabetes mellitus without complication 10/29/19 21 06/04/2024 Overview (04/15/2025): IMO 04/15/2025 Encounters Date Type Department Care Team Description 04/07/2025 Telephone [facility] [address], [facility] [address] [place] [address] Mi Dao MD Question 04/03/2025 Refill [facility] [address], [facility] [address] [place] [address] Mi Dao MD Refill Request 03/30/2025 Refill [facility] [address], [facility] [address] [place] [address] Mi Dao MD Refill Request 03/13/2025 Orders Only [facility] [address] [address] Mi Dao MD Neuropathy ; Bilateral foot pain 03/13/2025 Telephone [facility] [address] [address] Mi Dao MD Referral 03/12/2025 1:52 PM CDT - 03/12/2025 11:59 PM CDT Hospital Encounter [facility] [address] [place] [address] Mi Dao MD Kinsella, Laurence, MD Discharge Disposition: Home or Self Care 03/10/2025 Results Follow[facility] [address] [address] Mj Santillan DO 03/10/2025 Results [facility] [address] [address] Mi Dao MD 03/09/2025 8:30 AM CDT Ancillary Procedure [facility] - Radiology [address] [address] Mi Dao MD Bilateral foot pain 03/09/2025 7:45 AM CDT Office Visit [facility] [address] [address] Mi Dao MD Type 2 diabetes mellitus without complication, without long-term current use of insulin (HCC) (Primary Dx); Screening for colorectal cancer; Neuropathy; Chronic fatigue; Bilateral foot pain 03/05/2025 Refill [facility] [address] [address] Mi Dao MD Refill Request 03/04/2025 Orders Only [facility] [address] [address] Mj Santillan DO Essential hypertension ; Type 2 diabetes mellitus without complication, without long-term current use of insulin (HCC); Prostate cancer screening 03/01/2025 Refill [facility] [address] [phone] Mi Dao MD Refill Request 02/02/2025 Refill [facility] [address] [address] Mi Dao MD Refill Request 01/30/2025 Telephone [facility] [address] [address] Mi Dao MD Appointment 01/26/2025 Nurse Triage [facility] [address] [address] Mi Dao MD Appointment from Last 3 Months Immunizations Immunization Administration Dates Next Due CovYoka primary monoval ent 12+ yr 0.3mL Purple cap 10/24/2020,10/03/2020 FLU VACCINE QUAD IIV4 SPLIT 0.25 ML IM 0,05/11/2019 INFLUENZA VACCINE 04/29/2024,03/27/2021,05/11/20 19 INFLUENZA VACCINE, QUADR. (F LUZONE; FLULAVAL; FLUARIX; AFLURIA QUADRIVALENT; 6MO+), 0.5 ML (IIV4) 04/16/2020 TDAP (7yrs+) 05/11/2019,01/23/2015 Family History Medical History Relation Name Comments Brain Tumor Father Aneurysm, Aortic Mother Relation Name Status Comments Father Mother Social History Tobacco Use Types Packs/Day Years Used Date Smoking Tobacco: Never Smokeless Tobacco: Never Tobacco Cessation:Counseling Given: Not Answered Alcohol Use Standard Drinks/Week Comments Not Currently [...] Sign Reading Time Taken Comments Blood Pressure 134/88 03/09/2025 7:35 AM CDT Pulse 93 03/09/2025 7:35 AM CDT Temperature 36.7 C (98.1 F) 03/09/2025 7:35 AM CDT Respiratory Rate 18 11/16/2022 1:42 PM CDT Oxygen Saturation 99% 03/09/2025 7:35 AM CDT Inhaled Oxygen Concentration - - Weight 82.9 kg (182 lb 12.8 oz) 03/09/2025 7:35 AM CDT Height 167.6 cm (5' 6) 03/09/2025 7:35 AM CDT Body Mass Index 29.5 03/09/2025 7:35 AM CDT Plan of Treatment Upcoming Encounters Date Type Department Care Team (Late st Contact Info) Description 04/24/2025 7:30 AM CDT Office Visit [facility] - Family [facility] [address] [facility] [address] [place] [address] Mi Dao MD [address] [address] Health Maintenance Due Date Last Done Comments COLOGUARD (AGES 45-75) - COLON CA SCREENING 1960 COLON MONITORING 1960 COLONOSCOPY - COLON CA SCREENING 1962 CT COLONOGRAPHY - COLON CA SCREENING 1960 Colorectal Cancer Screening 1960 FIT - COLON CA SCREENING 1962 FLEX SIG - COLON CA SCREENING 1960 PNEUMOCOCCAL VACCINE 50+ (1 of 2 - PCV) 1981 ZOSTER VACCINE (1 of 2) 02/21/2012 COVID-19 VACCINE (4 - season) 2025 05/31/2021, 10/24/2020, 10/03/2020 INFLUENZA VACCINE (#1) 2025 , 03/27/2021, 04/16/2020, Additional history exists DIABETES-FOOT EXAM WITH MONOFILAMENT 05/13/2025 Postponed from 10/28/2020 (Patient Refused) DIABETES-HGB A1C 09/09/2025 03/09/2025, , 10/31/2023, Additional history exists DIABETES - URINE PROTEIN SCREENING 03/09/2026 03/09/2025, 07/04/2024 DIABETES-SERUM CREATININE 03/09/20262024, 07/04/2024, 10/31/2023, Additional history exists DIABETES RETINOPATHY SCREENING 03/09/2027 03/09/2025 DTAP/TDAP/TD VACCINES (3 - Td or Tdap) 05/11/2029 05/11/2019, 01/23/2015 Respiratory Syncytial Virus (RSV) Vaccine Pt: or over 60 yrs (1 - 1-dose 75+ series) 2037 HEPATITIS C SCREENING Completed 04/15/2020 (Done Outside Per Report) DEPRESSION SCREENING Completed 03/09/2025, 05/13/2024, 08/25/2022, Additional history exists HEPATITIS B VACCINE Aged Out No longe r eligible based on patient's age to complete this topic HIB VACCINE Aged Out No longer eligi ble based on patient's age to complete this topic HIV SCREENING Discontinued HPV VACCINE Aged Out No longer eligi ble based on patient's age to complete this topic MENINGOCOCCAL (Group B) VACCINE SHARED DECISION-MAKING Aged Out No longer eligible based on patient's age to complete this topic MENINGOCOCCAL GROUPS A/C/Y/W VACCINE Aged Out No longer eligible based on patient's age to complete this topic Procedures Procedure Name Priority Date/Time Associated Diagnosis Comments EMG WITH NERVE CONDUCTION STUDY Routine 03/12/2025 3:34 PM CDT Neuropathy TESTOSTERONE TOTAL Routine 03/09/2025 8: 55 AM CDT Chronic fatigue CBC W AUTO DIFFERENTIAL Routine 03/09/2025 8:52 AM CDT Essential hypertension PROSTATE SPECIFIC ANTIGEN SCREEN Routine 03/09/2025 8:52 AM CDT Prostate cancer screening MICROALB/CREAT RATIO URINE RANDOM PANEL Routine 03/09/2025 8:52 AM CDT Type 2 diabetes mellitus without complication, without long-term current use of insulin (HCC) LIPID PROFILE Routine 03/09/2025 8:52 AM CDT Type 2 diabetes mellitus without complication, without long-term current use of insulin (HCC) COMPREHENSIVE METABOLIC PANEL Routine 03/09/2025 8:52 AM CDT Type 2 diabetes mellitus without complication, without long-term current use of insulin (HCC) VITAMIN D 25-HYDROXY Routine 03/09/2025 8:52 AM CDT Essential hypertension VITAMIN B12 FOLATE PANEL Routine 03/09/2025 8:52 AM CDT Essential hypertension XR FOOT BILAT 3VW OR MORE Routine 03/09/2025 8:33 AM CDT Bilateral foot pain PROC OPH DIAB BILAT RET SCRN WCOMP INTERP Routine 03/09/2025 8:20 AM CDT Type 2 diabetes mellitus without complication, without long-term current use of insulin (HCC) HEMOGLOBIN A1C - POINT OF CARE (AMB) Routine 03/09/2025 7:45 AM CDT Type 2 diabetes mellitus without complication, without long-term current use of insulin (HCC) from Last 3 Months Results * EMG WITH NERVE CONDUCTION STUDY (03/12/2025 3:34 PM CDT) Melony Leo MD - 03/12/2025 3:34 PM CDT Melony Elmore MD 03/19/2025 3:37 PM [facility] at [address], [address] Electromyography Report Full Name: Adalid Basurto Gender: Male Date of : 1960 Visit Date: 03/12/2025 2:49 PM Age: 65 Years Examining Physician: Melony Elmore M.D. Referring Physician: Mi Dao MD Tech: PADMAJA Taylor Patient History/Exam: Query Entrapment Neuropathy vs. Radiculopathy Sensory NCS Nerve / Sites Rec. Site Onset Lat Peak Lat O-P Amp Segments Dist. Atul. ms ms V cm m/s R Radial - Anatomical snuff box (Forearm) Forearm Wrist 1.7 2.3 38.5 Forearm - Wrist 10 59 Ref. <=2.9 >=15.0 Ref. Sensory Nerve Conduction Study Nerve / Sites Rec. Site Onset Lat Peak Lat HIGH LIFT MULE OPERATOR Amp PP Amp Segments Distance Velocity Comment ms ms V V cm m/s R Sural - (Antidromic) Calf Ankle 3.07 3.80 9.8 12.4 Calf - Ankle 14 46 L Sural - (Antidromic) Calf Ankle 3.33 4.17 10.4 13.3 Calf - Ankle 14 42 R Superficial peroneal - (Antidromic) Lat leg Ankle 3.27 4.02 6.9 9.5 Lat leg - Ankle 14 43 L Superficial peroneal - (Antidromic) Lat leg Ankle 3.27 3.98 9.6 9.6 Lat leg - Ankle 14 43 Motor Nerve Conduction Study Nerve / Sites Muscle Latency Amplitude Segments Dist. Lat Diff Velocity Comments ms mV cm ms m/s R Peroneal - EDB Ankle EDB 4.29 4.2 Ankle - EDB 8 B. Fib Head EDB 10.88 4.5 B. Fib Head - Ankle 28.5 6.58 43.3 A. Fib Head EDB 13.13 4.5 A. Fib Head - B. Fib Head 10 2.25 44.4 R Tibial - AH Ankle AH 4.40 7.9 Ankle - AH 8 Knee AH 12.13 3.1 Knee - Ankle 35 7.73 45.3 H Reflex Nerve H Latency ms R Tibial - Soleus 32.08 L Tibial - Soleus 32.55 EMG Summary Table Spontaneous MUAP Recruitment Muscle Nerve Roots IA Fib PSW Fasc Amp Dur. Poly Pattern R. Extensor digitorum brevis Deep peroneal (Fibular) L5-S1 Nml Nml Nml 0 Nml Nml Nml Nml R. Abductor hallucis Tibial S1-S2 Nml Nml Nml 0 Nml Nml Nml Nml R. Tibialis anterior Deep peroneal (Fibular) L4-L5 Incr 1+ 1+ 0 Nml Nml Nml Nml R. Gastrocnemius Tibial S1-S2 Nml Nml Nml 0 Nml Nml Nml Nml R. Flexor digitorum longus Tibial L5-S2 Incr 1+ 1+ 0 Nml Nml Nml Nml L. Gastrocnemius Tibial S1-S2 Nml Nml Nml 0 Nml Nml Nml Nml L. Tibialis anterior Deep peroneal (Fibular) L4-L5 Nml Nml Nml 0 Nml Nml Nml Nml R. Vastus lateralis Femoral L2-L4 Nml Nml Nml 0 Nml Nml Nml Nml R. Lumbar paraspinals (low) - Nml Nml Nml 0 Nml Nml Nml Nml R. Lumbar paraspinals (mid) - Nml Nml Nml 0 Nml Nml Nml Nml R. Lumbar paraspinals (up) - Nml Nml Nml 0 Nml Nml Nml Nml Summary The sensory conduction test was normal in all 5 of the tested nerves: R Radial - Anatomical snuff box (Forearm), R Sural - (Antidromic), L Sural - (Antidromic), R Superficial peroneal - (Antidromic), L Superficial peroneal - (Antidromic). The H reflex study was normal in all 2 of the tested nerves: R Tibial - Soleus, L Tibial - Soleus. The needle EMG examination was performed in 11 muscles. It was normal in 9 muscle(s): R. Extensor digitorum brevis, R. Abductor hallucis, R. Gastrocnemius, L. Gastrocnemius, L. Tibialis anterior, R. Vastus lateralis, R. Lumbar paraspinals (low), R. Lumbar paraspinals (mid), R. Lumbar paraspinals (up). The study was abnormal in 2 muscle(s), with the following distribution: Abnormal spontaneous/insertional activity was found in R. Tibialis anterior, R. Flexor digitorum longus. Adalid Basurto [id number] 03/12/2025 2:49 PM 3 of 4 All studies were performed with a skin temperature of > 30 Celsius. Conclusion: There is electrical evidence of a mild right L5 radiculopathy. There is no electrical evidence of an entrapment neuropathy of the right leg and foot. There is no electrical evidence of a large fiber peripheral neuropathy. A small fiber neuropathy cannot be excluded. Further study of skin biopsy for intraepidermal nerve fiber density may be helpful. Melony Elmore MD, FAAN Board Certified, Electrodiagnostic and Neuromuscular Medicine Adalid Robersondulce [id number] 03/12/2025 2:49 PM 3 of 4 Mi Dao MD NEUROLOGY ORDERABLES Final Res ult * TESTOSTERONE TOTAL (03/09/2025 8:55 AM CDT) Testosterone Total MS 569 250 - 1100 ng/dL [facility] Comment: For additional information, please refer to https://education.LiveBid/faq/TotalTestosteroneLCMSMS (This link is being provided for informational/educational purposes only.) (Note) This test was developed and its analytical performance characteristics have been determined by [facility]. It has not been cleared or approved by the FDA. This assay has been validated pursuant to the CLIA regulations and is used for clinical purposes. [facility] [address] [address],[address] [place] [id number] Alex Short MD, PhD REPORT COMMENT: NO DRAW FEE PATIENT HAS TWO ORDERS FASTING:YES Test Performed at: [facility] [address] [place] [address] ALEX SHORT MD,PHD Blood BLOOD SPECIMEN / Unknown 03/09/2025 8:55 AM CDT 03/09/2025 8:56 AM CDT Mi Dao MD LAB - CHEMISTRY ORDERABLES Fin al Result [facility] [address] [place] [address] * (ABNORMAL) MICROALB/CREAT RATIO URINE RANDOM PANEL (03/09/2025 8:52 AM CDT) Creatinine Urine 172 20 - 320 mg/dL [facility] Microalbumin Urine 14.5 mg/dL [facility] Comment: Reference Range Not established Microalbumin/Creat inine Ratio 84(H) <30 mg/g creat [facility] Comment: The ADA defines abnormalities in albumin excretion as follows: Albuminuria Category Result (mg/g creatinine) Normal to Mildly increased <30 Moderately increased 30-299 Severely increased > OR = 300 The ADA recommends that at least two of three specimens collected within a 3-6 month period be abnormal before considering a patient to be within a diagnostic category. Test Performed at: [facility] [address] [place] [address] MAURICIO REBOLLEDO MD Urine URINE SPECIMEN OBTAINED BY CLEAN CATCH PROCEDURE / Unknown 03/09/2025 8:52 AM CDT 03/09/2025 8:52 AM CDT Mj Tyrell DO LAB - URINE CHEMISTRY ORDERABL ES Final Result Performing Organization Address [facility] de Phone Number [facility] [id number] [place] [address] * VITAMIN D 25-HYDROXY (03/09/2025 8:52 AM CDT) [facility] Vitamin D, 25 Hydroxy 58 30 - 100 ng/mL [facility] Comment: Vitamin D Status 25-OH Vitamin D: Deficiency: <20 ng/mL Insufficiency: 20 - 29 ng/mL Optimal: > or = 30 ng/mL For 25-OH Vitamin D testing on patients on D2-supplementation and patients for whom quantitation of D2 and D3 fractions is required, the QuestAssureD(TM) 25-OH VIT D, (D2,D3), LC/MS/MS is recommended: order code [id number] (patients >2yrs). See Note 1 Note 1 For additional information, please refer to http://education.PataFoods/faq/LSF840 (This link is being provided for informational/ educational purposes only.) REPORT COMMENT: FASTING:YES MULTIPLE TESTING PRIORITIES; ROUTINE TESTING TO FOLLOW. Test Performed at: [facility] [address] [address] MAURICIO REBOLLEDO MD Blood BLOOD SPECIMEN / Unknown 03/09/2025 8:52 AM CDT 03/09/2025 8:52 AM CDT Mj Tyrell DO LAB - CHEMISTRY ORDERABLES Fin al Result Performing Organization Address [facility] Co de Phone Number [facility] [phone] [place] [address] * CBC WITH DIFFERENTIAL (03/09/2025 8:52 AM CDT) White Blood Cell Count 10.4 3.8 - 10.8 Thousand/u L [facility] RBC 5.56 4.20 - 5.80 Million/uL [facility] Hemoglobin 15.7 13.2 - 17.1 g/dL [facility] Hematocrit 48.9 38.5 - 50.0 % [facility] MCV 87.9 80.0 - 100.0 fL [facility] MCH 28.2 27.0 - 33.0 pg [facility] MCHC 32.1 32.0 - 36.0 g/dL [facility] Comment: For adults, a slight decrease in the calculated MCHC value (in the range of 30 to 32 g/dL) is most likely not clinically significant; however, it should be interpreted with caution in correlation with other red cell parameters and the patient's clinical condition. RDW 13.9 11.0 - 15.0 % [facility] Platelet Count 372 140 - 400 Thousand/u L [facility] MPV 9.8 7.5 - 12.5 fL [facility] Neutrophil Absolute 7124 1500 - 7800 cells/uL [facility] Absolute Bands [facility] Metamyelocytes Absolute [facility] Myelocytes Absolute [facility] Absolute Prolymphocytes [facility] Lymphocytes Absolute 2309 850 - 3900 cells/uL [facility] Absolute Monocytes 790 200 - 950 cells/uL [facility] Eosinophils Absolute 125 15 - 500 cells/uL [facility] Basophils Absolute 52 0 - 200 cells/uL [facility] Absolute Blasts [facility] nRBC Absolute [facility] Granulocytes % 68.5 % [facility] Band Neutrophil [facility] Metamyelocytes [facility] Myelocytes [facility] Promyelocytes [facility] Lymphocytes % 22.2 % [facility] Lymphocyte Reactive [facility] Monocytes % 7.6 % [facility] Eosinophils % 1.2 % [facility] Basophils % 0.5 % [facility] Comment: Test Performed at: [place] [address] MAURICIO REBOLLEDO MD Blasts [facility] nRBC [facility] Comments [facility] Comment: Test Performed at: [facility] [address] [employer] [address] MAURICIO REBOLLEDO MD Blood BLOOD SPECIMEN / Unknown 03/09/2025 8:52 AM CDT 03/09/2025 8:52 AM CDT us Mj Menifee DO LAB - HEMATOLOGY ORDERABLES Fi nal Result [facility] [address] [place] [address] * (ABNORMAL) COMPREHENSIVE METABOLIC PANEL (03/09/2025 8:52 AM CDT) Glucose 133(H) 65 - 99 mg/dL [facility] Comment: Fasting reference interval For someone without known diabetes, a glucose value >125 mg/dL indicates that they may have diabetes and this should be confirmed with a follow-up test. BUN 16 7 - 25 mg/dL [facility] Creatinine 0.87 0.70 - 1.35 mg/dL [facility] eGFR by Cystatin C 97 > OR = 60 mL/min/1. 73m2 [facility] BUN/Creatinine Ratio SEE NOTE: 6 - (calc) [facility] Comment: Not Reported: BUN and Creatinine are within reference range. Sodium 137 135 - 146 mmol/L [facility] Potassium 4.3 3.5 - 5.3 mmol/L [facility] Chloride 102 98 - 110 mmol/L [facility] CO2 25 20 - 32 mmol/L [facility] Calcium 9.8 8.6 - 10.3 mg/dL [facility] Protein Total 7.3 6.1 - 8.1 g/dL [facility] Albumin 4.8 3.6 - 5.1 g/dL [facility] Globulin Total 2.5 1.9 - 3.7 g/dL (calc) [facility] Albumin/Globulin Ratio 1.9 1.0 - 2.5 (calc) [facility] Bilirubin Total 0.5 0.2 - 1.2 mg/dL [facility] Alkaline Phosphatase 73 35 - 144 U/L [facility] AST 16 10 - 35 U/L [facility] ALT 29 9 - 46 U/L [facility] Comment: Test Performed at: [facility] [address] [place] [address] MAURICIO REBOLLEDO MD Blood BLOOD SPECIMEN / Unknown 03/09/2025 8:52 AM CDT 03/09/2025 8:52 AM CDT us Mj Santillan DO LAB - CHEMISTRY ORDERABLES Fin al Result [facility] [address] [place] [address] * PROSTATE SPECIFIC ANTIGEN SCREEN (03/09/2025 8:52 AM CDT) Pathologist [facility] PSA 1.17 < OR = 4.00 ng/mL [facility] Comment: The total PSA value from this assay system is standardized against the WHO standard. The test result will be approximately 20% lower when compared to the equimolar-standardized total PSA (Sonia Minal). Comparison of serial PSA results should be interpreted with this fact in mind. This test was performed using the Siemens chemiluminescent method. Values obtained from different assay methods cannot be used interchangeably. PSA levels, regardless of value, should not be interpreted as absolute evidence of the presence or absence of disease. Test Performed at: [facility] [address] [place] [address] MAURICIO REBOLLEDO MD Blood BLOOD SPECIMEN / Unknown 03/09/2025 8:52 AM CDT 03/09/2025 8:52 AM CDT Mj Menifee DO LAB - CHEMISTRY ORDERABLES Fin al Result Performing Organization Address [facility] de Phone Number [facility] [phone] [place] [address] * (ABNORMAL) VITAMIN B12 FOLATE PANEL (03/09/2025 8:52 AM CDT) Vitamin B12 1131(H) 200 - 1100 pg/mL [facility] Folate 18.4 ng/mL [facility] Comment: Reference Range Low: <3.4 Borderline: 3.4-5.4 Normal: >5.4 Test Performed at: [facility] [address] [place] [address] MAURICIO REBOLLEDO MD Blood BLOOD SPECIMEN / Unknown 03/09/2025 8:52 AM CDT 03/09/2025 8:52 AM CDT Mj Menifee DO LAB - CHEMISTRY ORDERABLES Fin al Result Performing Organization Address [facility] Co de Phone Number [facility] [phone] [place] [address] * (ABNORMAL) LIPID PROFILE (03/09/2025 8:52 AM CDT) Cholesterol 196 <200 mg/dL [facility] HDL Cholesterol 71 > OR = 40 mg/dL [facility] Triglycerides 129 <150 mg/dL [facility] LDL Calculated 102(H) mg/dL (calc) [facility] Comment: Reference range: <100 Desirable range <100 mg/dL for primary prevention; <70 mg/dL for patients with CHD or diabetic patients with > or = 2 CHD risk factors. LDL-C is now calculated using the Concha calculation, which is a validated novel method providing better accuracy than the Friedewald equation in the estimation of LDL-C. Abhilash AGUDELO et al. INDIRA. 2013;310(19): 0980-7491 (http://education.fivesquids.co.uk.[employer]/faq/EYO064) CHOL/HDLC RATIO 2.8 <5.0 (calc) [facility] Non HDL Cholesterol 125 <130 mg/dL (calc) [facility] Comment: For patients with diabetes plus 1 major ASCVD risk factor, treating to a non-HDL-C goal of <100 mg/dL (LDL-C of <70 mg/dL) is considered a therapeutic option. Test Performed at: [facility] [address] [place] [address] MAURICIO REBOLLEDO MD Blood BLOOD SPECIMEN / Unknown 03/09/2025 8:52 AM CDT 03/09/2025 8:52 AM CDT us Mj Santillan DO LAB - CHEMISTRY ORDERABLES Fin al Result Performing Organization Address City/State/[facility] Co de Phone Number [facility] [address] [place] [address] * XR Foot Bilat 3Vw or More (03/09/2025 8:33 AM CDT) Anatomical Region Laterality Modality Ankle / Foot, Lower Extremity Ra diographic Imaging 03/09/2025 3:41 PM CDT Narrative 03/09/2025 3:43 PM CDT EXAM: XR FOOT BILAT 3VW OR MORE INDICATION: M79.671: Pain in right foot M79.672: Pain in left foot COMPARISON: none available FINDINGS: 3 views right foot shows mild joint space narrowing and hypertrophic spurring at the first metatarsal-phalangeal joint. Enthesopathic changes are present at the plantar aponeurosis origin. There is no displaced fracture, dislocation or osseous destruction. 3 views left foot shows no displaced fracture or dislocation. Significant hypertrophic or erosive changes are not identified. Enthesopathic changes are present at the plantar aponeurosis origin. > Interpreting Provider: Jagdish Miller JR, MD on 03/09/2025 3:43 PM Procedure Note Jagidsh Miller MD - 03/09/2025 EXAM: XR FOOT BILAT 3VW OR MORE INDICATION: M79.671: Pain in right foot M79.672: Pain in left foot COMPARISON: none available FINDINGS: 3 views right foot shows mild joint space narrowing and hypertrophic spurring at the first metatarsal-phalangeal joint. Enthesopathic changes are present at the plantar aponeurosis origin. There is no displaced fracture, dislocation or osseous destruction. 3 views left foot shows no displaced fracture or dislocation.Significant hypertrophic or erosive changes are not identified. Enthesopathicchanges are present at the plantar aponeurosis origin. > Interpreting Provider: Jagdish Miller JR, MD on 03/09/2025 3:43 PM Mi Dao MD DIAGNOSTIC IMAGING ORDERABLES Final Result * (ABNORMAL) Diabetes Retinopathy Screening (03/09/2025 8:20 AM CDT) IDX DR SCREEN Diabetic Retinopathy Detected: ETDRS level 35 or higher and/or Diabetic Macular Edema (A) [facility] Comment: Next Steps: Refer to classroom paraprofessional IDx Submission ID: [id number] Results were produced by a system that provides an artificial intelligence (AI) interpretation A positive result indicates a high risk of diabetic retinopathy with a severity of ETDRS level 35 or higher and/or macular edema. IDx-DR diabetic retinopathy exam does not replace a comprehensive eye exam. 03/09/2025 8:20 AM CDT Mi Dao MD PROCEDURE/MINOR SURGICAL ORDER BRENDA Final Result [facility] DR [facility] * HEMOGLOBIN A1C - POINT OF CARE (HgbA1C) (03/09/2025 7:45 AM CDT) Hemoglobin A1c POCT 6.2 % [facility] Expiration Date 09/26/2026 [facility] Lot # [id number] [facility] QC Verified Yes Yes [facility] Blood BLOOD SPECIMEN / Unknown 03/09/2025 7:45 AM CDT Mi Dao MD LAB - POINT OF CARE ORDERABLES Final Result [facility] [address], [address] [address], [facility] [phone] from Last 3 Months Insurance ANTH Care Teams Clinic Cma Relationship Specialty Start Date End Date Mi Dao MD [address] [address] PCP - General Family Medicine 07/22/20
--- OUTSIDE RECORDS SUMMARY | 2025-04-16 17:13 | XMS_ITS | Patient Health Record ---
Author Organization 1 OF [facility] Address [address] [place] [address] Care Team Providers Care Social Science Research Assistant Name Role Phone Rico Dao M.D. Primary Care Provider Jevon Clark Allergies No Known Allergies Reason For Referral Reason idiopathic neuropath y, pain aggrevated by walking Referral Organization [facility] Referring Provider First Name Osmany schwarz Referring Provider Last Name Lambert Referring Provider Speciality Podiatry Referred Provider Specialty Neurology Referral Priority Routine Medications Medication SIG (Take, Route, Frequency, Duration) Notes Start Date End Date Status Losartan Potassium 100 MG Tablet TAKE 1 TABLET BY MOUTH EVERY DAY Oral; Duration: 30 Days Active Gabapentin 100 MG Capsule 1 capsule Orally [...] FOR ANXIETY Oral; Duration: 30 Days Active Pantoprazole Sodium 40 MG Tablet Delayed Release Oral; Duration: 30 Days Active Atenolol 25 MG Tablet TAKE 1 TABLET BY MOUTH DAILY Oral; Duration: 30 Days Active Social History Tobacco Use: Social History Observation Description Date Details (start date - stop date) Never Smoker NA - NA Social History Tobacco Use: Social Info Question Answer Notes Tobacco Control (Standard) Tobacco use: Nonsmoker Problems Problem Type SNOMED Code ICD Code Onset Dates Problem Status W/U Status Risk Notes Problem Pronation deformity of left foot (M21.6X2) Active confirmed Problem Pronation deformity of right foot (M21.6X1) Active confirmed Problem 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 Problem Skin sensation disturbance (45179888) Paresthesia of both feet (R20.2) Active confirmed Problem Plantar fascial fibromatosis (86068203) Plantar fasciitis, bilateral (M72.2) Active confirmed Problem Tarsal tunnel syndrome (48533984) Tarsal tunnel syndrome of both lower extremities (G57.53) Active confirmed Vital Signs Height 66 in 04/06/2025 Weight 180 lbs 04/06/2025 BMI 29.05 kg/m2 04/06/2025 Encounters Encounter Location Date Provider Diagnosis 3 [facility] Kaitlin Verdin [facility] [place] [address] [address] 04/06/2025 Jevon Verdin Foot pain, left M79.672 ; Plantar fasciitis, bilateral M72.2 ; Foot pain, right M79.671 ; 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 ; Pronation deformity of left foot M21.6X2 ; Pain aggravated by walking R52 ; Hyperhidrosis of feet L74.513 and Idiopathic neuropathy G60.9 3 COL Kaitlin Verdin D[facility] [address] [address] 03/18/2025 Jevon Verdin 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 ; Tarsal tunnel syndrome of both lower extremities G57.53 ; Pronation deformity of left foot M21.6X2 ; Paresthesia of both feet R20.2 ; Pain aggravated by walking R52 ; Foot pain, left M79.672 and Foot pain, right M79.671 3 COL Katilin Verdin D[facility] [place] [address] [address] 03/25/2025 Jevon Verdin Hyperhidrosis of feet L74.513 ; Erythrasma L08.1 ; Tarsal tunnel syndrome of both lower extremities G57.53 ; 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 ; Pronation deformity of left foot M21.6X2 ; Pain aggravated by walking R52 ; Foot pain, left M79.672 and Foot pain, right M79.671 1 [facility] [address] [place] [address] 03/30/2025 Jevon Verdin Foot pain, left M79.672 ; Plantar fasciitis, bilateral M72.2 ; Foot pain, right M79.671 ; 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 ; Pronation deformity of left foot M21.6X2 ; Pain aggravated by walking R52 and Hyperhidrosis of feet L74.513 1 OF Axel Jordon Verdin [facility] [address] [place] [address] 04/06/2025 Jevon Verdin 1 OF [facility] [address] [place] [address] 03/18/2025 Jevon Verdin 1 OF [facility] [place] [address] [facility] [address] [place] [address] 04/06/2025 Jevon Verdin Assessments Encounter Date Diagnosis (ICD Code) Assessment Notes Treatment Notes Treatment Clinical Notes Section Notes 03/18/2025 Pronation deformity of right foot (ICD-10 - M21.6X1) 03/18/2025 Tarsal tunnel syndrome of both lower extremities (ICD-10 - G57.53) Patient visit today included a review of medical history, review of systems, physical exam and discussion of exam findings, diagnostic test results, and discussion of diagnoses and treatment options. Treatment today consisted of dispensing prefab orthotics, a referral to [facility] shoe store and a Rx for Medrol Dosepak. I also recommended custom orthotics for long-term solution and will verify orthotic benefits with patient's insurance before his next visit. Literature regarding tarsal tunnel syndrome was dispensed. Patient will follow-up in 2 weeks. 03/25/2025 Erythrasma (ICD-10 - L08.1) 03/25/2025 Hyperhidrosis of feet (ICD-10 - L74.513) 03/30/2025 Foot pain, left (ICD-10 - M79.672) 03/30/2025 Plantar fasciitis, bilateral (ICD-10 - M72.2) After physical exam and ultrasound exam and much discussion of patient's symptoms it seems the patient may have plantar fasciitis however has had trouble describing the symptoms. He may have other conditions as well but today I recommended treating the plantar fasciitis with steroid injection bilateral heels. 04/06/2025 Foot pain, left (ICD-10 - M79.672) 04/06/2025 Foot pain, right (ICD-10 - M79.671) 04/06/2025 Plantar fasciitis, bilateral (ICD-10 - M72.2) 03/30/2025 Foot pain, right (ICD-10 - M79.671) 03/18/2025 Pronation deformity of left foot (ICD-10 - M21.6X2) 03/25/2025 Tarsal tunnel syndrome of both lower extremities (ICD-10 - G57.53) 03/18/2025 Paresthesia of both feet (ICD-10 - R20.2) 03/25/2025 Pronation deformity of right foot (ICD-10 - M21.6X1) 03/30/2025 Pronation deformity of right foot (ICD-10 - M21.6X1) 04/06/2025 Pronation deformity of right foot (ICD-10 - M21.6X1) 03/30/2025 Pronation deformity of left foot (ICD-10 - M21.6X2) 04/06/2025 Pronation deformity of left foot (ICD-10 - M21.6X2) 03/25/2025 Pronation deformity of left foot (ICD-10 - M21.6X2) 03/18/2025 Pain aggravated by walking (ICD-10 - R52) 03/18/2025 Foot pain, left (ICD-10 - M79.672) 03/25/2025 Pain aggravated by walking (ICD-10 - R52) 03/30/2025 Pain aggravated by walking (ICD-10 - R52) 04/06/2025 Pain aggravated by walking (ICD-10 - R52) 04/06/2025 Hyperhidrosis of feet (ICD-10 - L74.513) 03/25/2025 Foot pain, left (ICD-10 - M79.672) 03/30/2025 Hyperhidrosis of feet (ICD-10 - L74.513) 03/18/2025 Foot pain, right (ICD-10 - M79.671) 03/25/2025 Foot pain, right (ICD-10 - M79.671) 04/06/2025 Idiopathic neuropathy (ICD-10 - G60.9) 04/06/2025 Other Plan: - Prescribed Gabapentin 100 mg. Instructed to start one capsule at bedtime for 3-5 days. If tolerated, may increase to one capsule three times daily as needed for pain. Discussed common side effects, including drowsiness. - Referral to Neurology at [facility] for further evaluation of neuropathic symptoms. - [...] and specialist consultation to investigate underlying etiology. 03/25/2025 Other ASSESSMENT - Hyperhidrosis. - Suspected mild bacterial infection (erythrasma vs. pitted keratolysis). - Tarsal tunnel of both feet, much improved with new [employer] shoes. Plan: - For hyperhidrosis/bact erial infection: - - Potent antiperspirant (Sweat Guard) applied in-office today. Instructed to dab, not rub, on soles of feet once weekly after showering at night. Patient may adjust frequency to every other week if effective. - - Prescription for topical erythromycin 2% solution sent to [facility] in [place]. To be applied to the bottom of both feet and between toes twice a day. - - Discussed custom orthotics. Patient will be scheduled for a fitting appointment, which will take place at the [place] office for faster scheduling. - Lifestyle or self-care recommendations: - - [employer] shoes (including new ones) with an antibacterial spray like Lysol. - - At end of day, take insoles out of shoes and allow shoes to air out near a vent or fan to dry completely. - Follow-up in approximately two weeks, to be coordinated with the custom orthotic fabrication appointment. Interventions: - Sweat Guard antiperspirant was applied to the plantar aspect of both feet in-office. - Feet wiped down with antibacterial soap. Additional Notes: - Patient educated that custom orthotics will offer more support and durability than [id number] insoles and will help with foot mechanics. He will be contacted to schedule orthotic fabrication. 03/30/2025 Other PRONATION DEFORMITY B/L Patient advised he may not have tolerated the prefab orthotics due to acute swelling from the plantar fasciitis and/OR due to intolerance of a prefabricated orthotic which in case the scheduled orthotic fabrication should be more beneficial. Patient was advised he can try the prefab orthotics again once the relief from the steroid injection sets then. Plan Of Treatment No Information Insurance Providers Payer Name Payer Address Payer Phone Subscriber Number Group Number Insured Name Patient Relationship to Insured Coverage Start Date Coverage End Date [facility] [address] [place] [address] [id number] Adalid Pang Self - patient is the insured Medical (General) History Medical History History ICD Code High blood pressure GERD/Reflux Anxiety disorder
== END 2025-04-16 17:00 | disposition home or self-care (01) ==
DX: M54.17 Radiculopathy, lumbosacral region (principal)
CPT/HCPCS: 72110